=== PATIENT | male | born 1970 | race Caucasian/White ===

== ENCOUNTER → 2020-05-22 15:38 | Outpatient (CLI) | payer OTHER, SELFPAY ==
[2020-05-22] MEDS: COVID-19 VACC #1, MRNA(MOD) 100 MCG/0.5 ML VIAL IM (15:41)
== END ==
PROVIDERS: PCP Internal Medicine; Visit Provider Internal Medicine
DX: Z23 Encounter for immunization (principal)
CPT/HCPCS: 0011A; 91301

== ENCOUNTER → 2020-06-19 15:22 | Outpatient (CLI) | payer OTHER, SELFPAY ==
[2020-06-19] MEDS: COVID-19 VACC #2, MRNA(MOD) 100 MCG/0.5 ML VIAL IM (15:27)
== END ==
PROVIDERS: PCP Internal Medicine; Visit Provider Internal Medicine
DX: Z23 Encounter for immunization (principal)
CPT/HCPCS: 0012A; 91301

== ENCOUNTER 2022-08-07 16:30 | Inpatient (IN) | payer OTHER, MEDICAID, SELFPAY ==
[2022-08-07] VITALS (13 sets, daily range): BP systolic 120–166; BP diastolic 74–101; PULSE 77–98; RESP 16; TEMP 37.1; O2SAT 94–98; BMI 30.3
--- NOTE | 2022-08-07 16:36 | DI.RAD.S_ITS ---
PROCEDURE: XR FOOT RT MIN 3V INDICATIONS: diabetic ulceration of 2nd toe, r/o osteo TECHNIQUE: 3 views of the foot were acquired. COMPARISON: None. FINDINGS: Bones: No acute osseous fracture or dislocation. Flexion of the distal interphalangeal joints is noted that compromises evaluation. No definite osseous destruction is seen on oblique and lateral views. Prominent plantar calcaneal enthesophyte. Soft tissues: Prominent soft tissue edema is seen in the 2nd toe. IMPRESSION: Nonspecific soft tissue edema in the 2nd toe. No definite radiographic signs of osteomyelitis given mildly compromised evaluation due to positioning and overlapping of osseous structures. If there is continued clinical concern, MRI could be performed for further evaluation. Approved by: Nick Anthony M.D. on 08/07/2022 at 17:24
[2022-08-07 17:11] LABS: Add Manual Diff / Slide Review NO; Basophils Absolute Auto 200 /uL (0-100); Eosinophils Absolute Auto 500 /uL (0-450); Eosinophils Percent Auto 5.3 % (2-4); Hemoglobin 14.5 g/dL (13.5-17.5); Lymphocytes Absolute Auto 2100 /uL (1100-4500); Lymphocytes Percent Auto 23.8 % (25-40); Mean Corpuscular HGB Conc 34.6 % (30-36); Mean Corpuscular Hemoglobin 32.3 PG (26-34); Mean Corpuscular Volume 93.1 fL (80-100); Monocytes Absolute Auto 600 /uL (0-900); Monocytes Percent Auto 6.1 % (3-14); Neutrophils Absolute Auto 5600 /uL (1500-7000); Neutrophils Percent Auto 62.8 % (50-75); Platelet Count 323 X10^3/uL (150-400); Red Blood Cell Count 4.51 X10^6/uL (4.5-5.9); Red Cell Distribution Width 13.1 % (11.6-14.8)
[2022-08-07 17:24] LABS: Alanine Aminotransferase 27 IU/L (<50); Albumin Globulin Ratio 1.1 (1.0-2.8); Alkaline Phosphatase 100 U/L (38-126); Aspartate Aminotransferase 29 IU/L (17-59); BUN Creatinine Ratio 15.6 (6-22); Bilirubin Total 0.9 mg/dL (0.2-1.3); Blood Urea Nitrogen 10 mg/dL (9-20); Calcium 9.1 mg/dL (8.4-10.2); Carbon Dioxide 26 mmol/L (22-32); Chloride 99 mmol/L (98-107); Estimated Glomerular Filt Rate > 60 mL/min (>60); Globulin 3.7 g/dL (1.7-4.1); Glucose 107 mg/dL (70-100); HEMOLYSIS 15 (0-50); Potassium 3.8 mmol/L (3.4-5.1); Sodium 136 mmol/L (137-145); Total Protein 7.7 g/dL (6.3-8.2)
--- NOTE | 2022-08-07 21:20 | ED_ITS ---
HPI - Extremity Injury (Lower) General Chief Complaint: Extremity Injury, Lower Stated Complaint: Bad toe Time Seen by Provider: 08/07/22 21:11 History of Present Illness HPI Narrative: Patient is a 51-year-old male history of gout presenting today with right 2nd toe infection. He reports that it is couple of weeks but over the last 24 hours as gotten significantly worse. He denies any fever or chills. He reports that his right leg is a little bit swollen and red as well. He is not a diabetic. He says it started off as a little wound progressively has gotten significantly worse. Related Data Home Medications Medication Instructions Recorded Confirmed [BP RX] ##0 10/06/11 06/03/20 allopurinol 100 mg tablet 100 mg PO QDAY ##0 10/06/11 06/03/20 Allergies Allergy/AdvReac Type Severity Reaction Status Date / Time No Known Allergies Allergy Uncoded 06/03/20 08:54 Review of Systems Review of Systems ROS Unobtainable: All systems reviewed & are unremarkable except as noted in HPI and below Patient History Social History Smoking Status: Former smoker Smoking Status: Former smoker Exam Initial Vital Signs Initial Vital Signs: Vital Signs Temperature 98.7 F 08/07/22 16:33 Pulse Rate 98 H 08/07/22 16:33 Respiratory Rate 16 08/07/22 16:33 Blood Pressure 166/101 H 08/07/22 16:33 Pulse Oximetry 97 08/07/22 16:33 Oxygen Delivery Method Room Air 08/07/22 16:33 GENERAL: Alert pleasant well-appearing 51-year-old and in no acute distress. HEENT: Head atraumatic,EOMI, pupils reactive, face symmetric, moist mucous membranes CARDIOVASCULAR: Regular rate and rhythm without murmurs, rubs or gallops. RESPIRATORY: Breath sounds equal bilaterally, no wheezes rales or rhonchi. ABDOMEN: Soft, nontender. Normoactive bowel sounds all 4 quadrants. No guarding or rebound. EXTREMITIES: Normal range of motion, no clubbing or edema. Neurovascularly intact NEUROLOGICAL: Alert and oriented x4. SKIN: Right lower leg mildly swollen erythematous up to the knee right 2nd toe white macerated non distinguishable toe nonpainful Course Orders Ordered: ED Orders 08/07/22 23:23 CT angio abd aorta runoff Urgent MR foot RT wo con Urgent 08/07/22 23:25 Consult to Orthopedic Surgery Routine Discontinued Medications Ceftriaxone Sodium 2,000 mg/ (Sodium Chloride) 100 mls @ 200 mls/hr IV NOW ONE Stop: 08/07/22 21:21 Last Infusion: 08/07/22 22:04 Dose: 0 mls/hr Documented By: Admin: 08/07/22 21:34 Dose: 200 mls/hr Documented By: NEELA Vital Signs Vital signs: Vital Signs - 8 hr 08/07/22 20:30 08/07/22 20:30 08/07/22 21:00 Pulse Rate 82 Blood Pressure 131/74 128/78 Pulse Oximetry 95 08/07/22 21:00 08/07/22 21:30 08/07/22 21:32 Pulse Rate 79 83 Blood Pressure 138/90 Pulse Oximetry 95 97 08/07/22 21:32 08/07/22 22:00 08/07/22 22:00 Pulse Rate 83 81 Blood Pressure 136/92 H Pulse Oximetry 97 97 08/07/22 22:30 08/07/22 22:30 08/07/22 23:00 Pulse Rate 82 Blood Pressure 139/81 143/77 H Pulse Oximetry 96 08/07/22 23:00 08/07/22 23:30 08/07/22 23:30 Pulse Rate 81 80 Blood Pressure 139/87 Pulse Oximetry 94 94 MDM - Extremity Injury (Lower) Lab Data 08/07/22 16:45 08/07/22 16:45 Labs: Lab Results 08/07/22 08/07/22 08/07/22 Range/Units 00:01 16:45 16:45 WBC 9.0 (4.5-11.0) X10^3/uL RBC 4.51 (4.5-5.9) X10^6/uL Hgb 14.5 (13.5-17.5) g/dL Hct 42.0 (41-53) % MCV 93.1 (80-100) fL MCH 32.3 (26-34) PG MCHC 34.6 (30-36) % RDW 13.1 (11.6-14.8) % Plt Count 323 (150-400) X10^3/uL Neut % (Auto) 62.8 (50-75) % Lymph % (Auto) 23.8 L (25-40) % [place] % (Auto) 6.1 (3-14) % Eos % (Auto) 5.3 H (2-4) % Baso % (Auto) 2.0 (0-2) % Neut # (Auto) 5600 (6430-1308) /uL Lymph # (Auto) 2100 (0979-1118) /uL [place] # (Auto) 600 (0-900) /uL Eos # (Auto) 500 H (0-450) /uL Baso # (Auto) 200 H (0-100) /uL ESR (0-15) MM/HR Sodium 136 L (137-145) mmol/L Potassium 3.8 (3.4-5.1) mmol/L Chloride 99 (98-107) mmol/L Carbon Dioxide 26 (22-32) mmol/L BUN 10 (9-20) mg/dL Creatinine 0.64 L (0.66-1.25) mg/dL Estimated GFR > 60 (>60) mL/min BUN/Creatinine Ratio 15.6 (6-22) Glucose 107 H (70-100) mg/dL Uric Acid 3.5 (3.5-8.5) mg/dL Calcium 9.1 (8.4-10.2) mg/dL Total Bilirubin 0.9 (0.2-1.3) mg/dL AST 29 (17-59) IU/L ALT 27 (<50) IU/L Alkaline Phosphatase 100 (38-126) U/L C-Reactive Protein (<1.0) mg/dL Total Protein 7.7 (6.3-8.2) g/dL Albumin 4.0 (3.5-5.0) g/dL Globulin 3.7 (1.7-4.1) g/dL Albumin/Globulin Ratio 1.1 (1.0-2.8) Procalcitonin (<0.5) ng/mL 08/07/22 08/07/22 08/07/22 Range/Units 16:45 16:45 16:45 WBC (4.5-11.0) X10^3/uL RBC (4.5-5.9) X10^6/uL Hgb (13.5-17.5) g/dL Hct (41-53) % MCV (80-100) fL MCH (26-34) PG MCHC (30-36) % RDW (11.6-14.8) % Plt Count (150-400) X10^3/uL Neut % (Auto) (50-75) % Lymph % (Auto) (25-40) % [place] % (Auto) (3-14) % Eos % (Auto) (2-4) % Baso % (Auto) (0-2) % Neut # (Auto) (5896-1771) /uL Lymph # (Auto) (9672-8078) /uL [place] # (Auto) (0-900) /uL Eos # (Auto) (0-450) /uL Baso # (Auto) (0-100) /uL ESR 52 H (0-15) MM/HR Sodium (137-145) mmol/L Potassium (3.4-5.1) mmol/L Chloride (98-107) mmol/L Carbon Dioxide (22-32) mmol/L BUN (9-20) mg/dL Creatinine (0.66-1.25) mg/dL Estimated GFR (>60) mL/min BUN/Creatinine Ratio (6-22) Glucose (70-100) mg/dL Uric Acid (3.5-8.5) mg/dL Calcium (8.4-10.2) mg/dL Total Bilirubin (0.2-1.3) mg/dL AST (17-59) IU/L ALT (<50) IU/L Alkaline Phosphatase (38-126) U/L C-Reactive Protein 4.9 H (<1.0) mg/dL Total Protein (6.3-8.2) g/dL Albumin (3.5-5.0) g/dL Globulin (1.7-4.1) g/dL Albumin/Globulin Ratio (1.0-2.8) Procalcitonin 0.12 (<0.5) ng/mL Imaging Data Extremity x-ray #1: Radiologist's Impression: PROCEDURE:? XR FOOT RT MIN 3V ? INDICATIONS:? diabetic ulceration of 2nd toe, r/o osteo ? TECHNIQUE:? 3 views of the foot were acquired.? ? COMPARISON:? None. ? FINDINGS:? ? Bones:? No acute osseous fracture or dislocation.? Flexion of the distal interphalangeal joints is noted that compromises evaluation.? No definite osseous destruction is seen on oblique and lateral views.? Prominent plantar calcaneal enthesophyte. ? Soft tissues:? Prominent soft tissue edema is seen in the 2nd toe. ? IMPRESSION:? Nonspecific soft tissue edema in the 2nd toe.? No definite radiographic signs of osteomyelitis given mildly compromised evaluation due to positioning and overlapping of osseous structures.? If there is continued clinical concern, MRI could be performed for further evaluation. ? Approved by: Nick Anthony M.D. on 08/07/2022 at 17:24? [facility] Narrative Medical decision making narrative: Patient is a healthy 51-year-old male who presents with a toe infection. Has gotten significantly worse over the last 1 to days. He certainly has cellulitis up his right leg. There is no air on the x-ray concern or evidence necrotizing fasciitis, possible gangrene. He actually does not show any evidence of sepsis he has no leukocytosis fever tachycardia or hypotension. However his toe is obviously infected need for debridement versus amputation. X-ray does not show any osteomyelitis although he has elevated ESR and CRP. Dr. Jack accepts patient. Discharge Plan Departure Patient Disposition: Admitted As Inpatient Clinical Impression: Infection of toe Admit Date/Time: 08/07/22 23:37 Admit Provider: Chip Jack
[2022-08-07] MEDS: cefTRIAXone 2,000 MG in SODIUM CHLORIDE 0.9% 100 ML 200 MG IV (21:34)
[2022-08-07 21:59] LABS: Procalcitonin 0.12 ng/mL (<0.5)
[2022-08-07 22:16] LABS: C-Reactive Protein Quant 4.9 mg/dL (<1.0)
[2022-08-07 22:20] LABS: Erythrocyte Sedimentation Rate 52 MM/HR (0-15)
--- NOTE | 2022-08-07 23:23 | DI.CT.S_ITS ---
PROCEDURE: CT ANGIO ABD AORTA RUNOFF INDICATIONS: eval right leg for stenosis for poor healing ulcer of foot TECHNIQUE: After the administration of intravenous contrast, 2.5 mm sections acquired from T12 to the feet, with optional delayed image acquisition from the knees to the feet. 3-dimensional maximum intensity projection (MIP) coronal and sagittal reformats, and/or 3-dimensional volume rendering reformatting was then performed. For radiation dose reduction, the following was used: automated exposure control. COMPARISON: [facility], CR, XR FOOT RT MIN 3V, 08/07/2022, 17:03. FINDINGS: Image quality: Limited by venous contamination distally. Extravascular tissues: Lung bases are clear. Heart size is normal. Liver is normal in size and enhancement. Gallbladder wall is not thickened . Biliary system is non dilated. Pancreas enhances normally. Spleen is normal in size and enhancement. No adrenal nodules. Kidneys are normal in size and enhancement, without hydronephrosis. Non opacified bowel loops demonstrate normal wall thickness and enhancement. No free fluid or air. No retroperitoneal or mesenteric adenopathy. No ventral hernias. Bladder wall thickness is normal. Bilateral fat containing inguinal hernias are seen. Bilateral prominent groin lymph nodes can be seen, with the largest on the right measuring 3.4 x 2 cm, as on series 6, image 89. No suspicious bony lesions. No vertebral body compression fractures. There is a focally swollen left 2nd toe. There is partial absence of the distal phalanx of the 2nd toe. Abdominal aorta: Normal. Right lower extremity: The right common iliac artery, internal iliac artery, and external iliac artery are within normal limits. The right common femoral artery and profunda femoris artery are within normal limits. The right superficial femoral artery and popliteal artery are within normal limits. There is believed to be normal triple vessel runoff on the left, although this is obscured by venous contamination. Left lower extremity: The left common iliac artery and internal iliac artery are normal. The left external iliac artery and common femoral artery are within normal limits. The left profunda femoris artery and superficial femoral artery are normal. The left popliteal artery is normal. There is poor flow seen involving the distal left anterior tibial artery. There is flow seen to the distal aspects of the left peroneal artery and left posterior tibial artery. IMPRESSION: No significant vascular abnormality is seen on the right, although the distal arteries are obscured by venous contamination. A focally swollen right 2nd toe is seen, with partial absence of the distal phalanx. Osteomyelitis is strongly suspected. Enlarged groin lymph nodes are seen, right worse than left. 2 vessel runoff can be seen on the left. Additional findings: Bilateral fat containing inguinal hernias Dictated by: Colin Teague M.D. on 08/08/2022 at 0:18 Approved by: Colin Teague M.D. on 08/08/2022 at 0:24
--- NOTE | 2022-08-07 23:23 | DI.MRI.S_ITS ---
PROCEDURE: MR FOOT RT WO CON INDICATIONS: osteomyelitis of 2nd toe? TECHNIQUE: Noncontrast sagittal T1 spin echo and T2 fast spin echo with fat saturation, long-axis T1 spin echo and T2 fast spin echo with fat saturation, short-axis T1 spin echo and T2 fast spin echo with fat saturation through the forefoot. COMPARISON: [facility], CR, XR FOOT RT MIN 3V, 08/07/2022, 17:03. FINDINGS: Image quality: Excellent. Bones and joints: Degenerative changes of the interphalangeal joints. Clawtoe configuration of the 2nd through 5th toes is seen. The distal aspect of the phalanx of the 2nd toe demonstrates hyperintense T2 weighted signal and hypointense T1 weighted signal consistent with osteomyelitis Soft tissues: There is edema and fluid signal around the 2nd toe distal phalanx. IMPRESSION: Osteomyelitis of the distal aspect of the distal phalanx of the 2nd toe of the right foot with surrounding cellulitis. Dictated by: Farzad Mckeon M.D. on 08/08/2022 at 8:51 Approved by: Farzad Mckeon M.D. on 08/08/2022 at 8:57
--- NOTE | 2022-08-07 23:32 | PM.HP.1 ---
History of Present Illness History of Present Illness Date Patient Seen: 08/07/22 Time Patient Seen: 23:00 Chief complaint: Bad toe Narrative: Mr. Pretty is a 51M with PMH gout, HTN, former smoker who presents with ulcerated, swollen toe. He notes he had an ulcer develop on the dorsal portion of his right second toe a few weeks ago. He had no trauma he says. He has no history of diabetes, peripheral artery disease, cardiac disease. He has no fevers/chills. He did soak his toe occasionally. His toe continued to worsen so he presented to the ED. In the ED workup was done, vitals notable for afebrile, heart rate in the 90s, blood pressure 160s/100s, sats 97% on room air. Labs reviewed and notable for WBC 9.0, hgb 14.5, plts 323. Na 136, BUN 10, creatinine 0.64. ESR 52. CRP 4.9. Procal 0.12. Foot xray reviewed by me and notable for edema of the 2nd toe. He was ordered for antibiotics and admitted for further treatment. FORMERLY [facility], [facility]–1983 Social History Smoking Status: Former smoker Meds Home Medications and Allergies Home Medications Medication Instructions Recorded Confirmed Type [BP RX] ##0 10/06/11 06/03/20 History allopurinol 100 mg tablet 100 mg PO QDAY ##0 10/06/11 06/03/20 History Allergies Allergy/AdvReac Type Severity Reaction Status Date / Time No Known Allergies Allergy Uncoded 06/03/20 08:54 Review of Systems Review of Systems Narrative: 14 systems reviewed and negative aside from what is noted in HPI Exam Vital Signs (past 8 hours): - 08/07/22 16:33 08/07/22 19:07 08/07/22 19:09 Temperature 98.7 F Pulse Rate 98 H 89 Respiratory Rate 16 Blood Pressure 166/101 H 143/91 H Pulse Oximetry 97 96 Oxygen Delivery Method Room Air 08/07/22 19:09 08/07/22 19:30 08/07/22 19:30 Temperature Pulse Rate 85 81 Respiratory Rate Blood Pressure 139/90 Pulse Oximetry 98 98 Oxygen Delivery Method 08/07/22 20:00 08/07/22 20:00 08/07/22 20:30 Temperature Pulse Rate 77 Respiratory Rate Blood Pressure 120/77 131/74 Pulse Oximetry 96 Oxygen Delivery Method 08/07/22 20:30 08/07/22 21:00 08/07/22 21:00 Temperature Pulse Rate 82 79 Respiratory Rate Blood Pressure 128/78 Pulse Oximetry 95 95 Oxygen Delivery Method 08/07/22 21:30 08/07/22 21:32 08/07/22 21:32 Temperature Pulse Rate 83 83 Respiratory Rate Blood Pressure 138/90 Pulse Oximetry 97 97 Oxygen Delivery Method 08/07/22 22:00 08/07/22 22:00 08/07/22 22:30 Temperature Pulse Rate 81 Respiratory Rate Blood Pressure 136/92 H 139/81 Pulse Oximetry 97 Oxygen Delivery Method 08/07/22 22:30 08/07/22 23:00 08/07/22 23:00 Temperature Pulse Rate 82 81 Respiratory Rate Blood Pressure 143/77 H Pulse Oximetry 96 94 Oxygen Delivery Method 08/07/22 23:30 08/07/22 23:30 Temperature Pulse Rate 80 Respiratory Rate Blood Pressure 139/87 Pulse Oximetry 94 Oxygen Delivery Method Oxygen Delivery Method Room Air Narrative Exam Narrative: GEN: no acute distress CV: regular rate and rhythm PULM: clear bilaterally, no wheezes, rhonchi rales ABD: soft, nontender, nondistended, normal bowel sounds EXT: warm and well perfused, pedal pulses palpable and normal, right 2nd toe with whitish swollen macerated skin surrounding entire toe with foul odor and proximally to toe skin erythematous NEURO: awake, alert, oriented, no focal deficits Objective Labs 08/07/22 16:45 08/07/22 16:45 Labs: Laboratory Results - last 24 hr 08/07/22 08/07/22 08/07/22 16:45 16:45 16:45 WBC 9.0 RBC 4.51 Hgb 14.5 Hct 42.0 MCV 93.1 MCH 32.3 MCHC 34.6 RDW 13.1 Plt Count 323 Neut % (Auto) 62.8 Lymph % (Auto) 23.8 L [place] % (Auto) 6.1 Eos % (Auto) 5.3 H Baso % (Auto) 2.0 Neut # (Auto) 5600 Lymph # (Auto) 2100 [place] # (Auto) 600 Eos # (Auto) 500 H Baso # (Auto) 200 H ESR 52 H Sodium 136 L Potassium 3.8 Chloride 99 Carbon Dioxide 26 BUN 10 Creatinine 0.64 L Estimated GFR > 60 BUN/Creatinine Ratio 15.6 Glucose 107 H Calcium 9.1 Total Bilirubin 0.9 AST 29 ALT 27 Alkaline Phosphatase 100 C-Reactive Protein Total Protein 7.7 Albumin 4.0 Globulin 3.7 Albumin/Globulin Ratio 1.1 Procalcitonin 08/07/22 08/07/22 16:45 16:45 WBC RBC Hgb Hct MCV MCH MCHC RDW Plt Count Neut % (Auto) Lymph % (Auto) [place] % (Auto) Eos % (Auto) Baso % (Auto) Neut # (Auto) Lymph # (Auto) [place] # (Auto) Eos # (Auto) Baso # (Auto) ESR Sodium Potassium Chloride Carbon Dioxide BUN Creatinine Estimated GFR BUN/Creatinine Ratio Glucose Calcium Total Bilirubin AST ALT Alkaline Phosphatase C-Reactive Protein 4.9 H Total Protein Albumin Globulin Albumin/Globulin Ratio Procalcitonin 0.12 Assessment & Plan Assessment & Plan narrative: 1. Infected right 2nd toe -concern for necrotic infection -patient denies history of DM, will check a1c -given nonhealing nature, and history of smoking, will order for CT angio to evaluate for any poor circulation that explains poor healing -ESR and CRP mildly elevated -MRI ordered to evaluate for osteomyelitis -ordered for vancomycin, ceftriaxone for now, narrow based on cultures -blood cultures pending -consult ortho for question of debridement vs amputation 2. Hypertension -continue arb 3. Gout -continue allopurinol -check uric acid I have discussed plan and obtained history from the patient. I have discussed plan of care with ED physician and bedside nurse. I have reviewed labs, imaging. CODE: Full Proxy: family Eri [facility] - Meds 'Current medications' to include all prescriptions, [id number] products, herbals, cannabis/cannabidiol products, and vitamin/mineral/dietary (nutritional) supplements. I have utilized all available resources to obtain, update, or review the patient?s current medications. [If Yes, STOP here]: Yes
[2022-08-08] VITALS (16 sets, daily range): BP systolic 138–160; BP diastolic 84–98; PULSE 76–95; RESP 16–20; TEMP 36.3–36.7; O2SAT 94–97; BMI 30.3
[2022-08-08 00:45] LABS: Uric Acid 3.5 mg/dL (3.5-8.5)
--- NOTE | 2022-08-08 08:09 | PM.PN.1 ---
Subjective Subjective Interval history: Patient wondering about surgery of his toe. Ortho will be by to evaluate later. He would prefer to avoid 6 weeks of IV antibiotics if he can. Exam Vital Signs (past 8 hours): - 08/08/22 00:30 08/08/22 00:59 08/08/22 00:59 Pulse Rate 87 80 Respiratory Rate Blood Pressure 149/93 H Pulse Oximetry 96 96 Oxygen Delivery Method 08/08/22 01:00 08/08/22 01:00 08/08/22 01:30 Pulse Rate 78 Respiratory Rate Blood Pressure 155/88 H 148/84 H Pulse Oximetry 95 Oxygen Delivery Method 08/08/22 01:30 08/08/22 02:00 08/08/22 02:00 Pulse Rate 76 81 Respiratory Rate Blood Pressure 160/98 H Pulse Oximetry 95 94 Oxygen Delivery Method 08/08/22 05:58 Pulse Rate 78 Respiratory Rate 20 Blood Pressure 150/88 H Pulse Oximetry 95 Oxygen Delivery Method Room Air Oxygen Delivery Method Room Air Narrative Exam Narrative: GEN: no acute distress CV: regular rate and rhythm PULM: clear bilaterally, no wheezes, rhonchi rales ABD: soft, nontender, nondistended, normal bowel sounds EXT: warm and well perfused, pedal pulses palpable and normal, right 2nd toe with whitish swollen macerated skin surrounding entire toe with foul odor, with small ulcer at distal tip draining purulent drainage NEURO: awake, alert, oriented, no focal deficits Objective Labs 08/08/22 11:20 08/08/22 11:20 Labs: Laboratory Results - last 24 hr 08/07/22 08/07/22 08/07/22 00:01 16:45 16:45 WBC 9.0 RBC 4.51 Hgb 14.5 Hct 42.0 MCV 93.1 MCH 32.3 MCHC 34.6 RDW 13.1 Plt Count 323 Neut % (Auto) 62.8 Lymph % (Auto) 23.8 L [place] % (Auto) 6.1 Eos % (Auto) 5.3 H Baso % (Auto) 2.0 Neut # (Auto) 5600 Lymph # (Auto) 2100 [place] # (Auto) 600 Eos # (Auto) 500 H Baso # (Auto) 200 H ESR Sodium 136 L Potassium 3.8 Chloride 99 Carbon Dioxide 26 BUN 10 Creatinine 0.64 L Estimated GFR > 60 BUN/Creatinine Ratio 15.6 Glucose 107 H Uric Acid 3.5 Calcium 9.1 Total Bilirubin 0.9 AST 29 ALT 27 Alkaline Phosphatase 100 C-Reactive Protein Total Protein 7.7 Albumin 4.0 Globulin 3.7 Albumin/Globulin Ratio 1.1 Procalcitonin 08/07/22 08/07/22 08/07/22 16:45 16:45 16:45 WBC RBC Hgb Hct MCV MCH MCHC RDW Plt Count Neut % (Auto) Lymph % (Auto) [place] % (Auto) Eos % (Auto) Baso % (Auto) Neut # (Auto) Lymph # (Auto) [place] # (Auto) Eos # (Auto) Baso # (Auto) ESR 52 H Sodium Potassium Chloride Carbon Dioxide BUN Creatinine Estimated GFR BUN/Creatinine Ratio Glucose Uric Acid Calcium Total Bilirubin AST ALT Alkaline Phosphatase C-Reactive Protein 4.9 H Total Protein Albumin Globulin Albumin/Globulin Ratio Procalcitonin 0.12 [facility] Social History household members: none Smoking Status: Current every day smoker Assessment & Plan Assessment & Plan narrative: 1. Left 2nd toe cellulitis and osteomyelitis of distal phalanx -patient denies history of DM, will check a1c -CT angio with evidence of vascular compromise -ESR and CRP mildly elevated -MRI shows 2nd distal phalanx on left with osteomyelitis -ordered for vancomycin, ceftriaxone for now, narrow based on cultures -blood cultures pending -consult ortho for question of debridement vs amputation -if no surgical debridement will need 6 weeks of IV abx, if all infected tissue removed then can treat with 2 weeks of IV abx or po linezolid 2. Hypertension -continue arb 3. Gout -continue allopurinol -uric acid 3.5 4. Depression -continue sertraline CODE: Full Proxy: Toney Pretty, family I have discussed with the hospital multidisciplinary care team including social work rounds. Dispo: Pending possible surgery and antibiotic course for osteomyelitis
[2022-08-08] MEDS: ENOXAPARIN 40 MG/0.4 ML SYRINGE SUBCUT (08:48)
[2022-08-08] MEDS: VANCOMYCIN 2,000 MG/400 ML PIGGYBACK 200 MG IV (08:48)
[2022-08-08] MEDS: SERTRALINE 50 MG TABLET 100 MG PO (09:56)
[2022-08-08] MEDS: allopurinoL 100 MG TABLET 300 MG PO (09:56)
[2022-08-08] MEDS: LOSARTAN 50 MG TABLET 100 MG PO (09:56)
[2022-08-08 11:26] LABS: Add Manual Diff / Slide Review NO; Basophils Absolute Auto 100 /uL (0-100); Eosinophils Absolute Auto 500 /uL (0-450); Eosinophils Percent Auto 7.6 % (2-4); Hemoglobin 14.3 g/dL (13.5-17.5); Lymphocytes Absolute Auto 1500 /uL (1100-4500); Lymphocytes Percent Auto 21.7 % (25-40); Mean Corpuscular HGB Conc 34.8 % (30-36); Mean Corpuscular Hemoglobin 32.6 PG (26-34); Mean Corpuscular Volume 93.6 fL (80-100); Monocytes Absolute Auto 400 /uL (0-900); Monocytes Percent Auto 5.7 % (3-14); Neutrophils Absolute Auto 4600 /uL (1500-7000); Platelet Count 289 X10^3/uL (150-400); Red Blood Cell Count 4.38 X10^6/uL (4.5-5.9); White Blood Cell Count 7.1 X10^3/uL (4.5-11.0)
[2022-08-08 11:36] LABS: BUN Creatinine Ratio 15.3 (6-22); Blood Urea Nitrogen 9 mg/dL (9-20); Calcium 8.8 mg/dL (8.4-10.2); Carbon Dioxide 27 mmol/L (22-32); Chloride 99 mmol/L (98-107); Estimated Glomerular Filt Rate > 60 mL/min (>60); Glucose 113 mg/dL (70-100); HEMOLYSIS < 15 (0-50); Potassium 4.3 mmol/L (3.4-5.1); Sodium 132 mmol/L (137-145)
--- NOTE | 2022-08-08 17:33 | P.CONS_ITS ---
History of Present Illness Consult details Date Patient Seen: 08/08/22 Time Patient Seen: 16:00 Chief complaint: Bad toe Reason for consult: right foot second toe infection Requesting provider: Jayesh Powell Narrative: Ms. Pretty is a 51 yo M with 3 weeks history of worsening right second toe infection. His toe has purulent drainage from the wound on the tip of the toe. There is no visible capillary refill on the tip of the toe indicating possible necrosis of at least part of the toe. Patient has MRI of the right foot showing at least distal phalanx with osteomyelitis. I discussed my findings with the patient. I recommended surgical debridement and at least partial amputation of the right second toe. Risks of the surgery was discussed. He is scheduled urgently for tomorrow AM. Patient understands and agrees with the plan. Meds Home Medications and Allergies Home Medications Medication Instructions Recorded Confirmed Type allopurinol 300 mg tablet 300 mg PO DAILY 08/08/22 08/08/22 History losartan 100 mg tablet 100 mg PO DAILY 08/08/22 08/08/22 History sertraline 100 mg tablet 100 mg PO DAILY 08/08/22 08/08/22 History Allergies Allergy/AdvReac Type Severity Reaction Status Date / Time No Known Drug Allergies Allergy Verified 08/08/22 08:15 Exam Vital Signs (past 8 hours): - 08/08/22 09:56 08/08/22 10:00 08/08/22 11:58 Temperature 98.0 F Pulse Rate 83 85 Respiratory Rate 18 Blood Pressure 157/98 H 145/98 H Pulse Oximetry 96 97 Oxygen Delivery Method Room Air Objective Labs 08/08/22 11:20 08/08/22 11:20 Labs: Laboratory Results - last 24 hr 08/07/22 08/07/22 08/07/22 00:01 16:45 16:45 WBC RBC Hgb Hct MCV MCH MCHC RDW Plt Count Neut % (Auto) Lymph % (Auto) [place] % (Auto) Eos % (Auto) Baso % (Auto) Neut # (Auto) Lymph # (Auto) [place] # (Auto) Eos # (Auto) Baso # (Auto) ESR 52 H Sodium Potassium Chloride Carbon Dioxide BUN Creatinine Estimated GFR BUN/Creatinine Ratio Glucose Uric Acid 3.5 Calcium C-Reactive Protein 4.9 H Procalcitonin 08/07/22 08/08/22 08/08/22 16:45 11:20 11:20 WBC 7.1 RBC 4.38 L Hgb 14.3 Hct 41.0 MCV 93.6 MCH 32.6 MCHC 34.8 RDW 13.0 Plt Count 289 Neut % (Auto) 64.0 Lymph % (Auto) 21.7 L [place] % (Auto) 5.7 Eos % (Auto) 7.6 H Baso % (Auto) 1.0 Neut # (Auto) 4600 Lymph # (Auto) 1500 [place] # (Auto) 400 Eos # (Auto) 500 H Baso # (Auto) 100 ESR Sodium 132 L Potassium 4.3 Chloride 99 Carbon Dioxide 27 BUN 9 Creatinine 0.59 L Estimated GFR > 60 BUN/Creatinine Ratio 15.3 Glucose 113 H Uric Acid Calcium 8.8 C-Reactive Protein Procalcitonin 0.12 PFSH Social History household members: none Tobacco & Substance Use Smoking Status: Current every day smoker
[2022-08-08] MEDS: VANCOMYCIN 1,250 MG/250 ML PIGGYBACK 250 MG IV (18:01)
[2022-08-08] MEDS: cefTRIAXone 2,000 MG in SODIUM CHLORIDE 0.9% 100 ML 200 MG IV (21:00)
[2022-08-08] MEDS: ACETAMINOPHEN 325 MG TABLET 650 MG PO (22:14)
[2022-08-09] VITALS (14 sets, daily range): BP systolic 110–151; BP diastolic 61–99; PULSE 67–107; RESP 11–20; TEMP 35.2–36.7; O2SAT 93–97; BMI 30.3
[2022-08-09] MEDS: VANCOMYCIN 1,250 MG/250 ML PIGGYBACK 250 MG IV ×3 (04:15→20:14)
[2022-08-09 07:08] LABS: Add Manual Diff / Slide Review NO; Basophils Absolute Auto 100 /uL (0-100); Basophils Percent Auto 1.5 % (0-2); Eosinophils Absolute Auto 500 /uL (0-450); Eosinophils Percent Auto 7.9 % (2-4); Hematocrit 41.1 % (41-53); Hemoglobin 14.4 g/dL (13.5-17.5); Lymphocytes Absolute Auto 1800 /uL (1100-4500); Mean Corpuscular Hemoglobin 32.8 PG (26-34); Mean Corpuscular Volume 93.7 fL (80-100); Monocytes Absolute Auto 300 /uL (0-900); Monocytes Percent Auto 5.6 % (3-14); Neutrophils Absolute Auto 3500 /uL (1500-7000); Platelet Count 271 X10^3/uL (150-400); Red Blood Cell Count 4.38 X10^6/uL (4.5-5.9); Red Cell Distribution Width 13.1 % (11.6-14.8); White Blood Cell Count 6.2 X10^3/uL (4.5-11.0)
[2022-08-09 07:17] LABS: BUN Creatinine Ratio 16.2 (6-22); Blood Urea Nitrogen 11 mg/dL (9-20); Calcium 8.9 mg/dL (8.4-10.2); Carbon Dioxide 29 mmol/L (22-32); Chloride 99 mmol/L (98-107); Estimated Glomerular Filt Rate > 60 mL/min (>60); Glucose 106 mg/dL (70-100); HEMOLYSIS < 15 (0-50); Potassium 4.2 mmol/L (3.4-5.1); Sodium 136 mmol/L (137-145)
[2022-08-09] MEDS: LACTATED RINGERS 1,000 ML 42 ML IV (08:42)
--- NOTE | 2022-08-09 09:10 | SUR.OPER ---
Supine on padded OR bed, head on pillow, arms secured on padded arm boards at <90 degrees abduction, legs uncrossed, safety belt at abdomen, tape over blanket over lower left leg.
[2022-08-09] MEDS: BUPIVACAINE 0.25% (PF) VIAL 30 ML INJ (09:38)
--- NOTE | 2022-08-09 09:58 | P.OP_ITS ---
Operative Date/Time/Diagnoses Date of procedure: 08/09/22 Time of procedure: 08:45 Pre-op diagnosis: 1. Right second toe osteomyelitis 2. Right second toe deep abscess Post-op diagnosis: same Procedure & Clinicians Procedure: 1. Right second toe trans-middle phalanx amputation 2. Irrigtation and debridement of skin, muscle and bone of right second toe 3. Primary wound closure Same procedure as scheduled: Yes Indications: Mr. Randle is here for 3 weeks of progressively worsening right second toe infection. Over the last week, he has active purulent drainage from an open wound from the tip of the toe. He was admitted through ER and orthopedic service was consulted. MRI showed osteomyelitis in at least the entire the distal phalanx. Patient was scheduled for urgent I&D and partial amputation of his right second toe. Surgeon: Lorna Clancy Yes if Unassisted: Yes Anesthesia Type: General Operative Notes Closure Type: primary Estimated Blood Loss (mL): 2 Blood products transfused: none Tourniquet time (min): 47 Procedure in detail: After risks and benefits of the surgery was discussed, informed consent was obtained and was placed into the chart. Surgical site was marked. Patient was taken to the OR. General anesthesia was administered. Time out was performed. Patient was placed into supine position. Tourniquet was placed on the right upper thigh. Patient's right leg was prepped from tips of his toes up to the tourniquet. Patient's right leg was prepped and draped in the sterile fashion. Patient's right leg was elevated for 1 minute and tourniquet was inflated to 250 mm mercury. Fifteen blade scalpel was used to debride the skin. Patient's right 2nd toe was found to be entirely encapsulated in hard callus circumferentially. Combination of small scissors and Leksell rongeur was used to remove the callus from the toe. Patient was found to have multiple small open wounds with draining abscess from distal portion of the right 2nd toe. The incision was extended to the base of the middle phalanx. The wound was examined. The distal phalanx had significant bone loss due to the osteomyelitis. There is approximately 1 cc of purulent material inside the wound mostly in the location of the distal phalanx. Wound culture was taken at this time. There was partial involvement of the middle phalanx in the distal portion with bony erosion due to osteomyelitis. Small bony rongeur was used to remove the distal phalanx and part of the middle phalanx until healthy-appearing bone and soft tissue was visualized. Tourniquet was temporarily released to examine for viable bleeding tissue. On healthy appearing soft tissue including the skin subcutaneous tissue and muscle was removed until healthy tissue was identified. The wound was copiously irrigated with sterile normal saline at this time. Skin of the amount of plantar skin was preserved in order to close the wound with more plantar skin for its more abundant vascularity. The skin edges was trimmed to allow a cosmetic closure. Combination of 2-0 and 3-0 nylon suture was used to close the wound in interru pted fashion. The wound was closed without any difficulty. The wound was then covered with Xeroform sterile 4 x 4 plane and Bright bandage. Tourniquet was deflated at this time. Patient was woken up from anesthesia and transferred to recovery room in stable condition. Patient will be placed on IV antibiotics. We will follow on patient's wound culture and adjust the antibiotics accordingly. Patient can weight bear as tolerated in a postop shoe to his right lower extremity. Complications: none Post-operative Condition: stable Disposition: PACU Plan for aftercare: Admit to inpatient hospital
[2022-08-09] MEDS: ONDANSETRON 4 MG/2 ML INJ IV (10:12)
[2022-08-09] MEDS: OXYCODONE IR 5 MG TABLET PO (10:12)
[2022-08-09 10:37] LABS: Vancomycin Trough 16.4 ug/mL (10-20)
[2022-08-09] MEDS: allopurinoL 100 MG TABLET 300 MG PO (10:51)
[2022-08-09] MEDS: LOSARTAN 50 MG TABLET 100 MG PO (10:51)
[2022-08-09] MEDS: SERTRALINE 50 MG TABLET 100 MG PO (10:52)
--- NOTE | 2022-08-09 10:56 | PT-IP ANOTE ---
PT order received. Pt underwent toe surgery this date. Will initiate eval next treatment date.
[2022-08-09] MEDS: LACTATED RINGERS 1,000 ML 125 ML IV (11:39)
--- NOTE | 2022-08-09 12:21 | CM.DANOTE ---
Initial Discharge Assessment Note: Case reviewed, met with patient. Introduced self and role. Payer: Jerome VELA and self pay PCP: CANDY at [facility] in [place] 51 year old male admitted for ulcerated Right 2nd toe. MRI showed partial osteo. Partial amputation done today to R 2nd toe. Dressing intact and surgical shoe on. Patient can be WBAT. 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 Discussed options of home infusion versus outpatient infusion. He is still under effect of anaesthetic and is undecided at this time. Will need follow up discussion. Plan: Patient will need to make a decision between Outpatient infusion center her at [facility] versus home with home infusion, [facility]. Begin referral process in AM J Discharge Planning/Care Management CM Discharge Assessment Start: 08/09/22 12:17 Freq: Status: Active Protocol: Document 08/09/22 12:19 (Rec: 08/09/22 12:21 [id number]) Discharge Planning Assessment Assigned Clarifier Operator Helper Cherise Alcantar RN/DCP Advance Directives? No History Provided By Patient Prior Living Arrangements House Household Members none Type of transporation used prior to Drives own vehicle admit Independent with ADL's Yes Is patient alert and oriented? Yes Caregiver for Another No Barriers to Discharge No Discharge Plan Home Referrals Initiated Other Additional Comment Tomorrow, once patient decides , referral to either home infusion or outpatient infusion. Review Status In Process Next Review Type Continued Stay Review
--- NOTE | 2022-08-09 14:24 | PM.PN.1 ---
Subjective Subjective Interval history: Patient please do had surgery. Feeling better. Eager to know the next steps of care especially after wound culture intraoperatively taken results are known. Exam Vital Signs (past 8 hours): - 08/09/22 08:43 08/09/22 09:58 08/09/22 10:02 Temperature 97.3 F L 98.1 F Pulse Rate 82 85 79 Respiratory Rate 16 14 11 L Blood Pressure 145/99 H 128/78 133/87 Pulse Oximetry 97 93 94 Oxygen Delivery Method Room Air Room Air Room Air Oxygen Flow Rate 08/09/22 10:08 08/09/22 10:16 08/09/22 10:30 Temperature 95.4 F L Pulse Rate 78 79 71 Respiratory Rate 16 20 14 Blood Pressure 151/61 H 132/88 114/68 Pulse Oximetry 93 94 93 Oxygen Delivery Method Room Air Room Air Oxygen Flow Rate 0 08/09/22 10:51 08/09/22 11:00 08/09/22 12:00 Temperature 95.8 F L 95.7 F L Pulse Rate 76 72 86 Respiratory Rate 16 17 Blood Pressure 117/68 120/71 118/86 Pulse Oximetry 94 93 Oxygen Delivery Method Oxygen Flow Rate 0 0 Oxygen Delivery Method Room Air Oxygen Flow Rate 0 Narrative Exam Narrative: GEN: no acute distress CV: regular rate and rhythm PULM: clear bilaterally, no wheezes, rhonchi rales ABD: soft, nontender, nondistended, normal bowel sounds EXT: warm and well perfused, pedal pulses palpable and normal, right foot dressed with postop dressing NEURO: awake, alert, oriented, no focal deficits Objective Labs 08/09/22 06:15 08/09/22 06:15 Labs: Laboratory Results - last 24 hr 08/09/22 08/09/22 08/09/22 06:15 06:15 10:05 WBC 6.2 RBC 4.38 L Hgb 14.4 Hct 41.1 MCV 93.7 MCH 32.8 MCHC 35.0 RDW 13.1 Plt Count 271 Neut % (Auto) 56.0 Lymph % (Auto) 29.0 [place] % (Auto) 5.6 Eos % (Auto) 7.9 H Baso % (Auto) 1.5 Neut # (Auto) 3500 Lymph # (Auto) 1800 [place] # (Auto) 300 Eos # (Auto) 500 H Baso # (Auto) 100 Sodium 136 L Potassium 4.2 Chloride 99 Carbon Dioxide 29 BUN 11 Creatinine 0.68 Estimated GFR > 60 BUN/Creatinine Ratio 16.2 Glucose 106 H Calcium 8.9 Vancomycin Trough 16.4 PFSH Social History household members: none Smoking Status: Current every day smoker Assessment & Plan Assessment & Plan narrative: . Left 2nd toe cellulitis and osteomyelitis with surgical amputation today. Patient currently postoperative. -patient denies history of DM, will check a1c -CT angio with evidence of vascular compromise -ESR and CRP mildly elevated on presentation -MRI shows 2nd distal phalanx on left with osteomyelitis on presentation -ordered for vancomycin, ceftriaxone for now, narrow based on cultures -blood cultures have proven to be negative -consulted ortho for amputation -awaiting intraoperative cultures to determine length of antibiotics and whether IV or p.o. 2. Hypertension -continue arb 3. Gout -continue allopurinol -uric acid 3.5 4. Depression -continue sertraline CODE: Full Proxy: Toney Pretty, family Follow clinically and labs. Dispo: surgery completed and antibiotic course for osteomyelitis needs to be determined
[2022-08-09] MEDS: cefTRIAXone 2,000 MG in SODIUM CHLORIDE 0.9% 100 ML 200 MG IV (21:33)
[2022-08-09] MEDS: MELATONIN 3 MG TABLET 6 MG PO (21:33)
[2022-08-09] MEDS: ACETAMINOPHEN 325 MG TABLET 650 MG PO (21:33)
[2022-08-10 01:13] LABS: x Labcorp Estim. Avg Glu (eAG) 108 mg/dL (.); x Labcorp Hemoglobin A1c 5.4 % (4.8-5.6)
[2022-08-10] MEDS: LACTATED RINGERS 1,000 ML 125 ML IV (01:37)
[2022-08-10] MEDS: VANCOMYCIN 1,250 MG/250 ML PIGGYBACK 250 MG IV ×3 (03:26→20:24)
[2022-08-10 04:45] VITALS: BP 116/77; PULSE 71; RESP 18; TEMP 36.2; O2SAT 96
[2022-08-10 06:14] LABS: Add Manual Diff / Slide Review NO; Basophils Absolute Auto 100 /uL (0-100); Basophils Percent Auto 0.7 % (0-2); Eosinophils Absolute Auto 200 /uL (0-450); Eosinophils Percent Auto 1.6 % (2-4); Hematocrit 39.8 % (41-53); Hemoglobin 13.7 g/dL (13.5-17.5); Lymphocytes Absolute Auto 1900 /uL (1100-4500); Lymphocytes Percent Auto 16.4 % (25-40); Mean Corpuscular HGB Conc 34.5 % (30-36); Mean Corpuscular Hemoglobin 32.4 PG (26-34); Monocytes Absolute Auto 600 /uL (0-900); Monocytes Percent Auto 4.9 % (3-14); Neutrophils Absolute Auto 8900 /uL (1500-7000); Neutrophils Percent Auto 76.4 % (50-75); Platelet Count 282 X10^3/uL (150-400); Red Blood Cell Count 4.23 X10^6/uL (4.5-5.9); Red Cell Distribution Width 13.2 % (11.6-14.8); White Blood Cell Count 11.6 X10^3/uL (4.5-11.0)
[2022-08-10 06:39] LABS: Blood Urea Nitrogen 14 mg/dL (9-20); Carbon Dioxide 24 mmol/L (22-32); Chloride 103 mmol/L (98-107); Estimated Glomerular Filt Rate > 60 mL/min (>60); Glucose 124 mg/dL (70-100); HEMOLYSIS < 15 (0-50); Potassium 4.5 mmol/L (3.4-5.1); Sodium 135 mmol/L (137-145)
[2022-08-10 06:43] LABS: C-Reactive Protein Quant 1.5 mg/dL (<1.0)
[2022-08-10] MEDS: SERTRALINE 50 MG TABLET 100 MG PO (08:10)
[2022-08-10 08:11] VITALS: BP 118/76; PULSE 69
[2022-08-10] MEDS: LOSARTAN 50 MG TABLET 100 MG PO (08:11)
[2022-08-10] MEDS: allopurinoL 100 MG TABLET 300 MG PO (08:11)
[2022-08-10 08:34] VITALS: BP 118/76; PULSE 68; RESP 18; TEMP 35.8; O2SAT 96
--- NOTE | 2022-08-10 09:23 | PM.PN.1 ---
Subjective Subjective Interval history: Slightly less pain today. Swelling has decreased. Patient is pleased with his progress. Eager to know the results of the culture from the wound intraoperatively. This is still pending. Exam Vital Signs (past 8 hours): - 08/10/22 04:45 08/10/22 08:11 08/10/22 08:34 Temperature 97.1 F L 96.4 F L Pulse Rate 71 69 68 Respiratory Rate 18 18 Blood Pressure 116/77 118/76 118/76 Pulse Oximetry 96 96 Oxygen Flow Rate 0 0 Oxygen Delivery Method Room Air Oxygen Flow Rate 0 Narrative Exam Narrative: GEN: no acute distress CV: regular rate and rhythm PULM: clear bilaterally, no wheezes, rhonchi rales ABD: soft, nontender, nondistended, normal bowel sounds EXT: warm and well perfused, pedal pulses palpable and normal, right foot dressed with postop dressing NEURO: awake, alert, oriented, no focal deficits Objective Labs 08/10/22 05:45 08/10/22 05:45 Labs: Laboratory Results - last 24 hr 08/07/22 08/09/22 08/10/22 00:01 10:05 05:45 WBC 11.6 H D RBC 4.23 L Hgb 13.7 Hct 39.8 L MCV 94.0 MCH 32.4 MCHC 34.5 RDW 13.2 Plt Count 282 Neut % (Auto) 76.4 H D Lymph % (Auto) 16.4 L [place] % (Auto) 4.9 Eos % (Auto) 1.6 L Baso % (Auto) 0.7 Neut # (Auto) 8900 H Lymph # (Auto) 1900 [place] # (Auto) 600 Eos # (Auto) 200 Baso # (Auto) 100 Sodium Potassium Chloride Carbon Dioxide BUN Creatinine Estimated GFR BUN/Creatinine Ratio Glucose Hgb A1c (Ref Lab) 5.4 Estim Average Glucose 108 Calcium C-Reactive Protein Vancomycin Trough 16.4 08/10/22 08/10/22 05:45 05:45 WBC RBC Hgb Hct MCV MCH MCHC RDW Plt Count Neut % (Auto) Lymph % (Auto) [place] % (Auto) Eos % (Auto) Baso % (Auto) Neut # (Auto) Lymph # (Auto) [place] # (Auto) Eos # (Auto) Baso # (Auto) Sodium 135 L Potassium 4.5 Chloride 103 Carbon Dioxide 24 BUN 14 Creatinine 0.61 L Estimated GFR > 60 BUN/Creatinine Ratio 23.0 H Glucose 124 H Hgb A1c (Ref Lab) Estim Average Glucose Calcium 9.0 C-Reactive Protein 1.5 H Vancomycin Trough [facility] Social History household members: none Smoking Status: Current every day smoker Assessment & Plan Assessment & Plan narrative: . Left 2nd toe cellulitis and osteomyelitis with surgical amputation yesterday.? Patient currently postoperative. -patient denies history of DM, will check a1c. Hemoglobin A1c is 5.4 which is normal. -CT angio with evidence of vascular compromise -ESR and CRP mildly elevated on presentation, C-reactive protein has decreased to 1.5 today -MRI showed 2nd distal phalanx on left with osteomyelitis on presentation -ordered for vancomycin, ceftriaxone for now, narrow based on cultures, intraoperative culture still pending -blood cultures have proven to be negative -consulted ortho for amputation, completed yesterday -awaiting intraoperative cultures to determine length of antibiotics and whether IV or p.o. 2. Hypertension -continue arb, stable 3. Gout -continue allopurinol -uric acid 3.5 4. Depression -continue sertraline CODE: Full Proxy: Toney Pretty, family Follow clinically and labs. Dispo: surgery completed and antibiotic course for osteomyelitis needs to be determined once culture intraoperatively are known
--- NOTE | 2022-08-10 12:00 | CM.DPC ---
DCP continued: CM spoke with Dr. Wolfe today who stated she is waiting for culture results to determine if patient will need IV ABX or Oral ABX. CM called [facility] who stated they are working on this case and just need to know what IV ABX will be needed. CM team will follow up with this information if patient needs IV ABX. DC plan: home with either PO ABX or [facility] to manage IV ABX infusions. if patient needs IV Patient will need PICC line placed once that is determined. CM team will continue to follow to help with DC planning needs. Wendy Garcia RNglobal product manager
--- NOTE | 2022-08-10 12:30 | PT.IIE ---
Current Diagnoses Local infection of the skin and subcutaneous tissue, unspecified (08/07/22) Surgery Performed Operation Date: 08/09/22 08:00 Actual Procedures p Incision and Drainage Wound Right Second Toe, Partial Amputation - Lorna Lawrence MD Physical Therapy Inpatient Evaluation/Re-Eval M1 PT/OT-IP Prior Functional Status Start: 08/10/22 07:54 Freq: NEEDED Status: Active Protocol: Document 08/10/22 12:30 (Rec: 08/10/22 13:27 [id number]) Medical Review Prior Functional Status Medical History Reviewed Yes Communication WNL Mobility and Gait Independent; admits to some falls in the last year Activities of Daily Living and IADL's 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 M2 PT-IP Current Condition Start: 08/10/22 07:54 Freq: NEEDED Status: Active Protocol: Document 08/10/22 12:30 (Rec: 08/10/22 13:27 [id number]) Physical Therapy Current Condition Current Condition Evaluation Date 08/10/22 M3 PT-IP Subjective Start: 08/10/22 07:54 Freq: NEEDED Status: Active Protocol: Document 08/10/22 12:30 (Rec: 08/10/22 13:27 [id number]) Subjective Physical Therapy Visit Type Type Initial Evaluation Visit Start Time 12:09 Visit Stop Time 12:30 Total Visit Minutes 21 Physical Therapy Visit Comments Patient Comments Pt states that they feel pretty good with movement. Therapy Pain Assessment Pain When Pain Assessed During Mobility Pain Present Pain Present Pain Reported Location Right Toe Intensity 2 Scale Used Numeric (0 - 10) M4 PT-IP Mobility and Gait Start: 08/10/22 07:54 Freq: NEEDED Status: Active Protocol: Document 08/10/22 12:30 (Rec: 08/10/22 13:27 [id number]) PT-Bed Mobility Assessment Rolling Level of Assist Independent Supine to Sit Supine to Sit Independent Sit to Supine Sit to Supine Independent Scooting Scooting to Edge of Bed Independent Scooting Up and Down in Bed Independent PT-Transfer Assessment Sit to and From Stand Sit to and from Stand Independent Equipment Transfer Assistive Device Gait Belt Orthotic/Prosthetic Devices or Brace: Yes Transfer Ability Level of Assist Independent Comments Mobility Comments Pt was up and moving prior to PT encounter. Was in post op shoe. Gait Assessment Gait Gait Assistance Required: Independent Distance (Feet) 100 Able to Maintain Weight Bearing Status Yes During Gait Assistive Devices Assistive Device Gait Belt Orthotic/Prosthetic Devices or Brace: Yes Gait Deviations General Gait Pattern Within Normal Limits Factors Limiting Gait Function Factors Limiting Gait Function Pain Comments Gait Comments When pt was cued to stand up straight, pt noted discomfort in R big toe. M5 PT-IP Objective Assessments Start: 08/10/22 07:54 Freq: NEEDED Status: Active Protocol: Document 08/10/22 12:30 (Rec: 08/10/22 13:27 [id number]) Orientation Orientation/Cognition Level of Alertness Alert Comments Pt was alert and oriented x4 Gross Range of Motion Upper Extremity ROM Assessment Within Functional Limits Lower Extremity ROM Assessment Within Functional Limits Strength Upper Extremity Strength Assessment Within Functional Limits Lower Extremity Strength Assessment Within Functional Limits Comments Strength Comments 4+/5 R hip, otherwise grossly 5/5 Coordination Assessment Gross Coordination Gross Coordination WNL Assessment Foot Tapping Test Normal Performance Sensation Assessment Sensation Gross Sensation Right LE Impaired Comments Sensation Comments Sensation in R LE was diminished compared to left; lateral and medial calf as well as dorsum of foot. Pt was unaware. Muscle Tone Muscle Tone WNL Yes M6 PT-IP Treatment Start: 08/10/22 07:54 Freq: NEEDED Status: Active Protocol: Document 08/10/22 12:30 (Rec: 08/10/22 13:27 [id number]) Physical Therapy Treatment Other Treatments Other Treatment Performed pt was educated that they are to wear the post op shoe for all WB activites but that they can take the shoe off when sleeping. M7 PT-IP Assessment and Plan Start: 08/10/22 07:54 Freq: NEEDED Status: Active Protocol: Document 08/10/22 12:30 (Rec: 08/10/22 13:27 [id number]) PT Summary Assessment and Plan Potential Rehabilitation Potential Excellent Status of Condition at Evaluation Evolving Summary Assessment Summary Pt was admitted to the ED on and taken to OR 08/09. Partial amputation of 2nd toe on R foot. Precautions are WBAT with post op shoe. Pt was up and moving around their room with ease in post op shoe upon encounter with PT. They live alone in a single story home with no stairs. There is a bath tub/shower in his home with no grab bars; PT recommended a tub transfer bench if WB in shower is not tolerable. Pain is a 2/10 with some tightness in upper legs. Pt is mobilizing independently at this time with good awareness of his precautions. Pt is working on being able to work remotely from home to monitor his movements. Pt does admit to some falls this past year but are unrelated to current condition. Pt does present with diminished sensation in R LE. Skilled out patient physical therapy could be beneficial to improve balance and gait. No acute PT needs are anticipated. Frequency of Treatment Frequency Of Treatment Discharge Precautions Other Precautions WBAT in post-op shoe Weight Bearing Status Weight Bearing Status Weight Bear as Tolerated Recommendations To Nursing Amount of Assist Needed Independent,Standby Assistance Discharge Recommendations PT Discharge Recommendations Home,Outpatient PT Other Discharge Recommendations pt may benefit from a tub transfer bench Transportation Needs at Discharge Private Vehicle Treatment was provided by Evelyn Olivier, SPT and supervised by Karmen Golden, PT, DPT. I personally reviewed this note and agree with its contents.
--- NOTE | 2022-08-10 12:31 | PM.PNPO.1 ---
Subjective Subjective Interval history: Patient is doing well this morning, has no complaints. Denies pain, fever, chills, nausea, vomiting. He states he has been up walking with postop shoe with no difficulty. He is eager to know more about the plan moving forward. Discussed that cultures are pending and he will continue broad coverage antibiotics until specifics are known. Exam Vital Signs (past 8 hours): - 08/10/22 04:45 08/10/22 08:11 08/10/22 08:34 Temperature 97.1 F L 96.4 F L Pulse Rate 71 69 68 Respiratory Rate 18 18 Blood Pressure 116/77 118/76 118/76 Pulse Oximetry 96 96 Oxygen Delivery Method Oxygen Flow Rate 0 0 08/10/22 07:00 Temperature Pulse Rate Respiratory Rate Blood Pressure Pulse Oximetry Oxygen Delivery Method Room Air Oxygen Flow Rate Oxygen Delivery Method Room Air Oxygen Flow Rate 0 Narrative Exam Narrative: Pleasant 51-year-old male. Awake, alert, and oriented. Gauze with minor amount of serosanguineous discharge, Bright bandage, and postoperative shoe intact. Strength intact to bilateral lower extremities. Decreased sensation to right toes, sensation intact to light touch of right foot and more proximal right leg. Sensation to light touch subjectively intact to left lower extremity. Objective Labs 08/10/22 05:45 08/10/22 05:45 Labs: Laboratory Results - last 24 hr 08/07/22 08/10/22 08/10/22 00:01 05:45 05:45 WBC 11.6 H D RBC 4.23 L Hgb 13.7 Hct 39.8 L MCV 94.0 MCH 32.4 MCHC 34.5 RDW 13.2 Plt Count 282 Neut % (Auto) 76.4 H D Lymph % (Auto) 16.4 L [place] % (Auto) 4.9 Eos % (Auto) 1.6 L Baso % (Auto) 0.7 Neut # (Auto) 8900 H Lymph # (Auto) 1900 [place] # (Auto) 600 Eos # (Auto) 200 Baso # (Auto) 100 Sodium 135 L Potassium 4.5 Chloride 103 Carbon Dioxide 24 BUN 14 Creatinine 0.61 L Estimated GFR > 60 BUN/Creatinine Ratio 23.0 H Glucose 124 H Hgb A1c (Ref Lab) 5.4 Estim Average Glucose 108 Calcium 9.0 C-Reactive Protein 08/10/22 05:45 WBC RBC Hgb Hct MCV MCH MCHC RDW Plt Count Neut % (Auto) Lymph % (Auto) [place] % (Auto) Eos % (Auto) Baso % (Auto) Neut # (Auto) Lymph # (Auto) [place] # (Auto) Eos # (Auto) Baso # (Auto) Sodium Potassium Chloride Carbon Dioxide BUN Creatinine Estimated GFR BUN/Creatinine Ratio Glucose Hgb A1c (Ref Lab) Estim Average Glucose Calcium C-Reactive Protein 1.5 H PFSH Social History household members: none Smoking Status: Current every day smoker Assessment & Plan Post-op Postoperative Procedures: Procedures Operation Date: 08/09/22 08:00 Actual Procedure Side Surgeon p Incision and Drainage Wound Right Second Toe, Partial Amputation Lorna Lawrence MD Postoperative day: 1 Postoperative status narrative: Patient progressing as expected after I and D, partial amputation right 2nd toe. Postoperative plan: routine post-op care Postoperative plan narrative: Continue IV antibiotics - primary team to follow on patient's wound culture and adjust the antibiotics accordingly. Weight bear as tolerated in a postop shoe to his right lower extremity. Continue multimodal pain regimen as needed. Disposition per primary team. Follow up with orthopedics 2 weeks after surgery for wound check.
[2022-08-10] MEDS: SODIUM CHLORIDE 0.9% 250 ML 21 ML IV (13:01)
[2022-08-10 15:00] VITALS: BP 121/75; PULSE 81; RESP 18; TEMP 37; O2SAT 95
[2022-08-10 20:00] VITALS: BP 119/67; PULSE 84; RESP 18; TEMP 36.1; O2SAT 84
[2022-08-10] MEDS: cefTRIAXone 2,000 MG in SODIUM CHLORIDE 0.9% 100 ML 200 MG IV (21:40)
[2022-08-10] MEDS: ACETAMINOPHEN 325 MG TABLET 650 MG PO (21:42)
[2022-08-10] MEDS: OXYCODONE IR 5 MG TABLET PO (21:42)
[2022-08-10] MEDS: DOCUSATE 100 MG CAPSULE PO (21:43)
[2022-08-10] MEDS: MELATONIN 3 MG TABLET 6 MG PO (21:43)
[2022-08-11] VITALS: BP 117/75; PULSE 67; RESP 18; TEMP 35.9; O2SAT 94
[2022-08-11] MEDS: VANCOMYCIN 1,250 MG/250 ML PIGGYBACK 250 MG IV (04:21)
[2022-08-11 06:00] VITALS: BP 124/79; PULSE 66; RESP 18; TEMP 35.6; O2SAT 96
[2022-08-11 07:03] LABS: Add Manual Diff / Slide Review NO; Basophils Absolute Auto 0 /uL (0-100); Basophils Percent Auto 0.5 % (0-2); Eosinophils Absolute Auto 300 /uL (0-450); Eosinophils Percent Auto 3.8 % (2-4); Hematocrit 39.8 % (41-53); Hemoglobin 13.8 g/dL (13.5-17.5); Lymphocytes Absolute Auto 2900 /uL (1100-4500); Mean Corpuscular HGB Conc 34.6 % (30-36); Mean Corpuscular Hemoglobin 32.6 PG (26-34); Mean Corpuscular Volume 94.1 fL (80-100); Monocytes Absolute Auto 400 /uL (0-900); Monocytes Percent Auto 4.5 % (3-14); Neutrophils Absolute Auto 4800 /uL (1500-7000); Neutrophils Percent Auto 57.2 % (50-75); Platelet Count 300 X10^3/uL (150-400); Red Blood Cell Count 4.23 X10^6/uL (4.5-5.9); Red Cell Distribution Width 13.2 % (11.6-14.8); White Blood Cell Count 8.4 X10^3/uL (4.5-11.0)
[2022-08-11 07:14] LABS: BUN Creatinine Ratio 20.6 (6-22); Blood Urea Nitrogen 13 mg/dL (9-20); Calcium 8.8 mg/dL (8.4-10.2); Carbon Dioxide 25 mmol/L (22-32); Chloride 102 mmol/L (98-107); Estimated Glomerular Filt Rate > 60 mL/min (>60); Glucose 103 mg/dL (70-100); HEMOLYSIS < 15 (0-50); Potassium 4.3 mmol/L (3.4-5.1); Sodium 135 mmol/L (137-145)
[2022-08-11] MEDS: allopurinoL 100 MG TABLET 300 MG PO (08:10)
[2022-08-11] MEDS: SERTRALINE 50 MG TABLET 100 MG PO (08:10)
[2022-08-11 08:11] VITALS: BP 124/79
[2022-08-11] MEDS: LOSARTAN 50 MG TABLET 100 MG PO (08:11)
[2022-08-11] MEDS: SODIUM CHLORIDE 0.9% FLUSH 10 ML IV (08:12)
--- NOTE | 2022-08-11 10:08 | P.DS_ITS ---
History of Present Illness History of Present Illness Date Patient Seen: 08/11/22 Time Patient Seen: 09:35 Chief complaint: Bad toe Narrative: Per admitting provider, Mr. Pretty is a 51M with PMH gout, HTN, former smoker who presents with ulcerated, swollen toe. He notes he had an ulcer develop on the dorsal portion of his right second toe a few weeks ago. He had no trauma he says. He has no history of diabetes, peripheral artery disease, cardiac disease. He has no fevers/chills. He did soak his toe occasionally. His toe continued to worsen so he presented to the ED. In the ED workup was done, vitals notable for afebrile, heart rate in the 90s, blood pressure 160s/100s, sats 97% on room air. Labs reviewed and notable for WB C 9.0, hgb 14.5, plts 323. Na 136, BUN 10, creatinine 0.64. ESR 52. CRP 4.9. Procal 0.12. Foot xray reviewed by me and notable for edema of the 2nd toe. He was ordered for antibiotics and admitted for further treatment. Discharge Providers Provider Date of admission: 08/07/22 23:37 Discharge Date: 08/11/22 Primary care physician: Doctor Indu MD Consults: 08/07/22 23:25 Consult to Orthopedic Surgery Routine Comment: Consulting Provider: Lorna Lawrence Reason for consultation: wet necrosis of 2nd rt toe Has provider been notified: No 08/08/22 10:36 Consult to Wound Care Routine Comment: Consulting Provider: [facility] 08/09/22 10:42 Consult to Discharge Planning Routine Comment: Consult to Physical Therapy Evaluate & Treat Comment: Physician Instructions: Evaluate and Treat Discharge provider: Jake Mandujano DO Summary Hospital Course Discharge Diagnosis: 1. Right 2nd toe cellulitis and osteomyelitis with surgical amputation yesterday.? Patient currently postoperative. 2. Hypertension 3. Gout 4. Depression Hospital Course: This is a 51 year old male admitted with acute osteomyelitis of his 2nd toe on the Right. Orthopedic surgery was consulted after the patient was started on broad spectrum antibiotics. They ultimately performed a partial amputation of his R 2nd toe on 08/09. Antibiotics were continued and the patient had a relatively uncomplicated post operative course with no significant events. At the time of discharge, patient's cultures were still pending and were too early for growth. Given operative note with clean margins, 2-5 days of post operative antibiotics were recommended. After discussion with the patient he wished to be a bit on the aggressive side so he was discharged home to approximate IV therapy with cefdinir and doxycycline for another 3 days. A1c returned at 5.4%. No other changes to patient's home medications were recommended at the time of discharge. He will have outpatient follow up in 2 weeks with orthopedic surgery for wound check. UPDATE: cultures showing gram negative bacilli, no current changes recommended but will call patient should antibiotic therapy be needed based on final operative cultures. Time Spent with Patient Time spent: Greater than 30 minutes Exam Vital Signs (past 8 hours): - 08/11/22 06:00 08/11/22 08:11 Temperature 96.0 F L Pulse Rate 66 Respiratory Rate 18 Blood Pressure 124/79 124/79 Pulse Oximetry 96 Oxygen Flow Rate 0 Oxygen Delivery Method Room Air Oxygen Flow Rate 0 Narrative Exam Narrative: GEN: no acute distress, chronic strabismus CV: regular rate and rhythm PULM: clear bilaterally, no wheezes, rhonchi rales ABD: soft, nontender, nondistended, normal bowel sounds EXT: warm and well perfused, pedal pulses palpable and normal, right foot dressed with postop dressing NEURO: awake, alert, oriented, no focal deficits Objective Labs 08/11/22 06:30 08/11/22 06:30 Labs: Laboratory Results - last 24 hr 08/11/22 08/11/22 08/11/22 06:30 06:30 06:30 WBC 8.4 RBC 4.23 L Hgb 13.8 Hct 39.8 L MCV 94.1 MCH 32.6 MCHC 34.6 RDW 13.2 Plt Count 300 Neut % (Auto) 57.2 Lymph % (Auto) 34.0 [place] % (Auto) 4.5 Eos % (Auto) 3.8 Baso % (Auto) 0.5 Neut # (Auto) 4800 Lymph # (Auto) 2900 [place] # (Auto) 400 Eos # (Auto) 300 Baso # (Auto) 0 Sodium 135 L Potassium 4.3 Chloride 102 Carbon Dioxide 25 BUN 13 Creatinine 0.63 L Estimated GFR > 60 BUN/Creatinine Ratio 20.6 Glucose 103 H Calcium 8.8 C-Reactive Protein 1.0 PFSH Social History household members: none Smoking Status: Current every day smoker Discharge Plan Discharge Plan Patient Disposition: Home Provider Discharge Comment: You were admitted to the hospital with an infection in your 2nd toe, this toe had to be removed. Will complete 5 days of antibiotics after resection of your toe at home, cultures have not grown any specific organi sm thus far but we can approximate current antibiotics at home. Please follow up with orthopedics clinic in 2 weeks. Nursing Discharge Comment: monitor your Left foot/incision site daily for signs and symptoms of infection. signs of this can be: increased pain, swelling, redness, foul odor, fever, general malaise. call your doctor/surgeon if any of those as listed above occur and do not resolve. call surgeon for follow up appt, see surgeon w/in 2 weeks of d/c today. call your primary care physician w/in 7-10 days of today's date. be cautious w/ the pain medications, assess your pain prior to taking medication. it can make you dizzy, so please use caution w/ driving. see attached info on the antibiotics you will be taking: cefdinir + doxycycline. it is good practice while taking antibiotics to take a probiotic. this can be over the counter, acidophilius OR probiotic *([employer]) another alternative is eating plain yogurt daily. it is good practice to take your vital signs twice daily from today x 1 week. keep a log of these and take them w/ you to the doctors appts. Left toe bandage changing: as per surgeon. i have sent a couple of gauze and saline flushes w/ you today to help you w/ your first day home. elevate your Lower extremities a few times per day if able, higher than your heart. this will help alleviate any pain/swelling. it was a pleasure to be your nurse today, please take care of yourself and have a great rest of your day! you zaid Discharge orders & Medications Prescriptions: New acetaminophen 325 mg Tablet 650 mg PO Q6H PRN (Reason: Fever/Mild Pain (1-3)) Qty: 60 0RF oxycodone 5 mg Tablet 5 mg PO Q3HR PRN (Reason: Pain, Mild (1-3)) 7 Days Qty: 20 0RF cefdinir 300 mg capsule 300 mg PO BID 3 Days Qty: 6 0RF doxycycline hyclate 100 mg tablet 100 mg PO BID 3 Days Qty: 6 0RF Continued sertraline 100 mg tablet 100 mg PO DAILY Patient Comments: TAKE 1 TABLET BY MOUTH DAILY allopurinol 300 mg tablet 300 mg PO DAILY Patient Comments: TAKE 1 TABLET BY MOUTH DAILY losartan 100 mg tablet 100 mg PO DAILY Follow up/Referrals: Indu,Doctor, [Primary Care Provider] - Diet/Activity/Treatments Diet: Diet as Tolerated and Regular Activity: As tolerated with no restrictions. Visit Report/Discharge Packet Instructions: Antibiotic-associated Colitis -- C difficile, DI for Prescription Opioid Use, DI for Incision and Drainage of a Joint, DI for Incision and Drainage, [facility]: Wound Care, Doxycycline (By mouth) Stand Alone Forms: Patient Portal/API, Stroke Signs & Symptoms Discharge Data Primary Care Provider: Doctor Indu Discharges patient from system. Discharge Date/Time: 08/11/22 13:50
[2022-08-11] MEDS: VANCOMYCIN 1,250 MG/250 ML PIGGYBACK 150 MG IV (11:33)
[2022-08-11 12:00] VITALS: BP 110/70; PULSE 83; RESP 18; TEMP 36.3; O2SAT 97
--- NOTE | 2022-08-11 12:30 | PC.NURSE ---
patient is a/o, voices needs. ind w/ ADLs, mobility. POD 2, dressing to left foot is CDI, +CSM. denies pain/discomfort. encouraged elevation thru the shift, amputation/wound care teaching provided thru the shift. patient is eager to learn, seems motivated. d/c instructions received. patient agreeable to take his dose of IV vanco prior to d/c. currently infusing. dc paperwork reviewed, patient requested [facility] paperwork assistance. encouraged to follow up w/ PCP after d/c. see d/c
== END 2022-08-11 13:50 | disposition home or self-care (01) | DRG 580 ==
LOC: ED 21:11 → AC 23:38
PROVIDERS: Emergency Medicine; Neuromusculoskeletal Medicine, Sports Medicine; Orthopaedic Surgery Orthopaedic Surgery of the Spine; Student in an Organized Health Care Education/Training Program; Admitting Provider Internal Medicine; Emergency Provider Internal Medicine; Referring Provider Emergency Medicine; Visit Provider Internal Medicine
PROC: 0KBV0ZZ Excision of Right Foot Muscle, Open Approach (ICD-10-PCS; principal; 2022-08-09 08:00)
DX: L03.031 Cellulitis of right toe (principal); M86.8X7 Other osteomyelitis, ankle and foot; I10 Essential (primary) hypertension; M10.9 Gout, unspecified; F32.A Depression, unspecified; F17.290 Nicotine dependence, other tobacco product, uncomplicated; Z20.822 Contact with and (suspected) exposure to COVID-19
CPT/HCPCS: 36415; 73630; 73718; 75635; 80048; 80053; 80202; 82962; 83036; 84145; 84550; 85025; 85651; 86140; 87040; 87070; 87075; 87077; 87185; 87186; 87205; 96365; 96366; 96367; 96372; 97161; 99284; 99285; J0696; J1100; J1650; J2250; J2405; J2704; J3010; Q9967

== ENCOUNTER 2022-08-19 12:06 | Emergency (ER) | payer OTHER, MEDICAID, SELFPAY ==
[2022-08-08 11:37] VITALS: BMI 30.3
[2022-08-19 12:08] VITALS: BP 155/85; PULSE 96; RESP 16; TEMP 36.7; O2SAT 97; BMI 33.3
--- NOTE | 2022-08-19 12:34 | DI.RAD.S_ITS ---
PROCEDURE: XR FOOT RT MIN 3V INDICATIONS: recent procedure for toe abscess, now more red, osteo? TECHNIQUE: 3 views of the foot were acquired. COMPARISON: [facility], MR, MR FOOT RT WO CON, 08/08/2022, 7:59. [facility], CR, XR FOOT RT MIN 3V, 08/07/2022, 17:03. FINDINGS: Bones: Interval 2nd toe distal amputation at the level of the mid shaft of the middle phalanx of the 2nd toe. No definite plain film evidence of osteomyelitis. Degenerative arthritis involving the 1st MTP and 1st IP joints. Soft tissues: No tibiotalar joint effusion. Achilles tendon appears normal. IMPRESSION: Interval distal 2nd toe amputation. No definite plain film evidence of osteomyelitis. Comment: Consider nonemergent foot MRI with without contrast. Dictated by: Daniel Dang M.D. on 08/19/2022 at 14:50 Approved by: Daniel Dang M.D. on 08/19/2022 at 14:54
[2022-08-19 12:58] LABS: Add Manual Diff / Slide Review NO; Basophils Absolute Auto 0 /uL (0-100); Basophils Percent Auto 0.3 % (0-2); Eosinophils Absolute Auto 300 /uL (0-450); Eosinophils Percent Auto 3.4 % (2-4); Hematocrit 41.6 % (41-53); Hemoglobin 14.4 g/dL (13.5-17.5); Lymphocytes Absolute Auto 2000 /uL (1100-4500); Lymphocytes Percent Auto 22.7 % (25-40); Mean Corpuscular HGB Conc 34.7 % (30-36); Mean Corpuscular Hemoglobin 32.2 PG (26-34); Mean Corpuscular Volume 92.7 fL (80-100); Monocytes Absolute Auto 400 /uL (0-900); Monocytes Percent Auto 4.5 % (3-14); Neutrophils Absolute Auto 6000 /uL (1500-7000); Neutrophils Percent Auto 69.1 % (50-75); Platelet Count 310 X10^3/uL (150-400); Red Blood Cell Count 4.49 X10^6/uL (4.5-5.9); Red Cell Distribution Width 12.9 % (11.6-14.8); White Blood Cell Count 8.7 X10^3/uL (4.5-11.0)
[2022-08-19 13:15] LABS: BUN Creatinine Ratio 19.7 (6-22); Blood Urea Nitrogen 12 mg/dL (9-20); C-Reactive Protein Quant 0.6 mg/dL (<1.0); Carbon Dioxide 29 mmol/L (22-32); Chloride 101 mmol/L (98-107); Estimated Glomerular Filt Rate > 60 mL/min (>60); Glucose 123 mg/dL (70-100); HEMOLYSIS < 15 (0-50); Potassium 4.1 mmol/L (3.4-5.1); Sodium 138 mmol/L (137-145)
[2022-08-19 13:21] LABS: Erythrocyte Sedimentation Rate 30 MM/HR (0-15)
--- NOTE | 2022-08-19 13:21 | ED.SKABFB ---
HPI - Skin/Abscess/Foreign Bdy General Chief complaint: Skin/Abscess/Foreign Body Stated complaint: dr ref/rt second toe Time Seen by Provider: 08/19/22 12:22 Source: patient Mode of arrival: Ambulatory History of Present Illness HPI narrative: 52-year-old male with a history of hypertension presents for evaluation of some pain and redness of the toes on his right foot. He had been recently seen and treated by our orthopedic surgeons for a infection on his right 2nd toe and had an incision and drainage. He states this looks much better but now he is developing some redness of other toes on his foot. He denies any fever chills nor nausea or vomiting. He is no longer taking antibiotics. Related Data Home Medications Medication Instructions Recorded Confirmed allopurinol 300 mg tablet 300 mg PO DAILY 08/08/22 08/08/22 losartan 100 mg tablet 100 mg PO DAILY 08/08/22 08/08/22 sertraline 100 mg tablet 100 mg PO DAILY 08/08/22 08/08/22 Previous Rx's Medication Instructions Recorded acetaminophen 325 mg tablet 650 mg PO Q6H PRN Fever/Mild Pain 08/11/22 (1-3) #60 tabs cefdinir 300 mg capsule 300 mg PO BID #20 caps 08/19/22 doxycycline hyclate 100 mg tablet 100 mg PO BID #20 tabs 08/19/22 Allergies Allergy/AdvReac Type Severity Reaction Status Date / Time No Known Drug Allergies Allergy Verified 08/08/22 08:15 Review of Systems Review of Systems Narrative: GENERAL: Denies chills, fatigue, malaise, fever, sweats. HEENT: Denies sinus pain, ear pain, sore throat, difficulty swallowing, dizziness. RESPIRATORY: Denies dyspnea, cough, wheezing, hemoptysis, sputum. CARDIOVASCULAR: Denies chest pain, palpitations, orthopnea, edema, GASTROINTESTINAL: Denies nausea, vomiting, abdominal pain, diarrhea, constipation, melena. : Denies dysuria, frequency, incontinence, hematuria, urinary retention. MUSCULOSKELETAL: denies weakness, joint pain, or bony pain SKIN: See HPI NEUROLOGIC: Denies weakness, headache, numbness, change in speech, confusion, seizures, incoordination. PSYCHIATRIC: No concerning psychosocial issues. 12 point review of systems is negative except for those stated above Patient History Social History household members: none Smoking Status: Current every day smoker Smoking Status: Current every day smoker tobacco type: smokeless tobacco alcohol intake frequency: 3 or more drinks per day Substance Use Type: marijuana Exam Narrative Exam Narrative: GEN: AOx3 and in mild distress EYES: Pupils are equal, round, and reactive to light and accommodation. Extraoccular muscles are intact bilaterally. There is no subconjunctival hemorrhage or exudate. CHEST: Lungs are clear to auscultation bilaterally and free of wheezes, rales, or rhonchi. Heart rate is regular rhythm, there are no murmurs, clicks, rubs, or gallops. There is no chest wall tenderness. ABD: Abdomen is soft and nontender. There is no guarding or rebound. Bowel sounds are normal in all 4 quadrants. There is no mass or organomegaly. EXT: minimal redness 4th and 5th toes of R foot. 2nd toe with appropriate healing, no significant swelling. No drainage. SKIN: Warm, pink, and dry. No erythema or rash Initial Vital Signs Initial Vital Signs: Vital Signs Temperature 98.0 F 08/19/22 12:08 Pulse Rate 96 H 08/19/22 12:08 Respiratory Rate 16 08/19/22 12:08 Blood Pressure 155/85 H 08/19/22 12:08 Pulse Oximetry 97 08/19/22 12:08 Oxygen Delivery Method Room Air 08/19/22 12:08 Course Orders Ordered: ED Orders 08/19/22 12:34 XR foot RT min 3V Stat 08/19/22 12:42 BMP [Basic Metabolic Panel] Stat CBC Auto Diff [Complete Blood Count AUTO DIFF] Stat CRP [C-Reactive Protein Quant] Stat ESR [Erythrocyte Sedimentation Rate] Stat Vital Signs Vital signs: Vital Signs - 8 hr 08/19/22 12:08 Temperature 98.0 F Pulse Rate 96 H Respiratory Rate 16 Blood Pressure 155/85 H Pulse Oximetry 97 Oxygen Delivery Method Room Air MDM - Skin/Abscess/Foreign Bdy Lab Data 08/19/22 12:42 08/19/22 12:42 Labs: Lab Results 08/19/22 08/19/22 Range/Units 12:42 12:42 WBC 8.7 (4.5-11.0) X10^3/uL RBC 4.49 L (4.5-5.9) X10^6/uL Hgb 14.4 (13.5-17.5) g/dL Hct 41.6 (41-53) % MCV 92.7 (80-100) fL MCH 32.2 (26-34) PG MCHC 34.7 (30-36) % RDW 12.9 (11.6-14.8) % Plt Count 310 (150-400) X10^3/uL Neut % (Auto) 69.1 (50-75) % Lymph % (Auto) 22.7 L (25-40) % [place] % (Auto) 4.5 (3-14) % Eos % (Auto) 3.4 (2-4) % Baso % (Auto) 0.3 (0-2) % Neut # (Auto) 6000 (9276-3416) /uL Lymph # (Auto) 2000 (7800-5134) /uL [place] # (Auto) 400 (0-900) /uL Eos # (Auto) 300 (0-450) /uL Baso # (Auto) 0 (0-100) /uL ESR 30 H (0-15) MM/HR Sodium 138 (137-145) mmol/L Potassium 4.1 (3.4-5.1) mmol/L Chloride 101 (98-107) mmol/L Carbon Dioxide 29 (22-32) mmol/L BUN 12 (9-20) mg/dL Creatinine 0.61 L (0.66-1.25) mg/dL Estimated GFR > 60 (>60) mL/min BUN/Creatinine Ratio 19.7 (6-22) Glucose 123 H (70-100) mg/dL Calcium 9.0 (8.4-10.2) mg/dL C-Reactive Protein 0.6 (<1.0) mg/dL [facility] Narrative Medical decision making narrative: [52] year old patient presents with minimal pain and swelling of the 4th and 5th toes in his right foot Multiple etiologies for patient's symptoms considered including, but not limited to: [Cellulitis versus abscess versus osteomyelitis] Prior Charts reviewed in our EMR Primary Historian: patient Labs reviewed and interpreted by myself: Largely unremarkable, no significant abnormalities Imaging reviewed: Foot x-ray demonstrates no obvious abnormalities Patient's symptoms improved over duration of stay with above-stated therapies. No signs of abscess or osteomyelitis. Given improvement with previously administered antibiotics, prescriptions are written for both cefdinir and doxycycline and sent to [facility]. He plans to follow-up with ortho. We did discuss the potential utility in referral to Podiatry and he will pursue this Findings and discharge diagnosis discussed with patient/family followed by verbalization of understanding Return precautions discussed with patient/family whom verbalize understanding of diagnosis and plan Discharge Plan Departure Patient Disposition: Home Clinical Impression: Infection of toe Instructions: DI for Cellulitis -- Adult Activity Restrictions/Additional Instructions: *You have been diagnosed with [toe infection ] *What to do: *Please continue to take your regular medications as directed. [ x] New medication prescriptions sent to your pharmacy: [[facility] ] [ ] New medication written as a paper prescription [ ] No new medications given *Please follow up with Dr. Lawrence in 2-3 days, call for an appointment. Let them know you were seen in the Emergency Department and that we ask that you be seen in follow up. *Return to Emergency Department if you should have any new, worsening or concerning symptoms, such as [fever greater than 101 F, shaking chills, worsening pain, persistent vomiting or other bothersome symptoms] Prescriptions: New doxycycline hyclate 100 mg tablet 100 mg PO BID Qty: 20 0RF cefdinir 300 mg capsule 300 mg PO BID Qty: 20 0RF No Action sertraline 100 mg tablet 100 mg PO DAILY Patient Comments: TAKE 1 TABLET BY MOUTH DAILY allopurinol 300 mg tablet 300 mg PO DAILY Patient Comments: TAKE 1 TABLET BY MOUTH DAILY losartan 100 mg tablet 100 mg PO DAILY acetaminophen 325 mg Tablet 650 mg PO Q6H PRN (Reason: Fever/Mild Pain (1-3)) Qty: 60 0RF Referrals: Kalli Rosenbaum DPM [Physician] - Lorna Lawrence MD [Physician] - Miscellaneous,MD Lidya [Primary Care Provider] - Stand Alone Forms: Patient Portal/API
== END 2022-08-19 14:31 | disposition home or self-care (01) ==
PROVIDERS: Emergency Provider Emergency Medicine
DX: L08.9 Local infection of the skin and subcutaneous tissue, unspecified (principal)
CPT/HCPCS: 36415; 73630; 80048; 85025; 85651; 86140; 99283; 99284

== ENCOUNTER → 2022-09-15 11:52 | Outpatient (CLI) | payer OTHER, MEDICAID, SELFPAY ==
[2022-08-08 11:37] VITALS: BMI 30.3
== END ==
PROVIDERS: Visit Provider Surgery
DX: G60.3 Idiopathic progressive neuropathy (principal); L97.512 Non-pressure chronic ulcer of other part of right foot with fat layer exposed
CPT/HCPCS: 11042; 99203; 99213

== ENCOUNTER → 2022-09-22 14:48 | Outpatient (CLI) | payer OTHER, MEDICAID, SELFPAY ==
[2022-08-08 11:37] VITALS: BMI 30.3
== END ==
PROVIDERS: Referring Provider Orthopaedic Surgery Orthopaedic Surgery of the Spine; Visit Provider Surgery
DX: G60.3 Idiopathic progressive neuropathy (principal); L97.512 Non-pressure chronic ulcer of other part of right foot with fat layer exposed
CPT/HCPCS: 11042

== ENCOUNTER → 2022-09-29 14:55 | Outpatient (CLI) | payer OTHER, MEDICAID, SELFPAY ==
[2022-08-08 11:37] VITALS: BMI 30.3
== END ==
LOC: WC 14:56
PROVIDERS: Referring Provider Orthopaedic Surgery Orthopaedic Surgery of the Spine; Visit Provider Surgery
DX: G60.3 Idiopathic progressive neuropathy (principal); L97.512 Non-pressure chronic ulcer of other part of right foot with fat layer exposed
CPT/HCPCS: 11042; 87070; 87075; 87077; 87186; 87205; 99213

== ENCOUNTER → 2022-10-06 14:50 | Outpatient (CLI) | payer OTHER, MEDICAID, SELFPAY ==
[2022-08-08 11:37] VITALS: BMI 30.3
== END ==
PROVIDERS: Referring Provider Orthopaedic Surgery Orthopaedic Surgery of the Spine; Visit Provider Surgery
DX: G60.3 Idiopathic progressive neuropathy (principal); L97.512 Non-pressure chronic ulcer of other part of right foot with fat layer exposed
CPT/HCPCS: 11042; 99213

== ENCOUNTER → 2022-10-13 14:45 | Outpatient (CLI) | payer OTHER, MEDICAID, SELFPAY ==
[2022-08-08 11:37] VITALS: BMI 30.3
== END ==
PROVIDERS: Referring Provider Orthopaedic Surgery Orthopaedic Surgery of the Spine; Visit Provider Surgery
DX: M79.89 Other specified soft tissue disorders (principal); R59.0 Localized enlarged lymph nodes; G60.3 Idiopathic progressive neuropathy; L97.516 Non-pressure chronic ulcer of other part of right foot with bone involvement without evidence of necrosis; L97.512 Non-pressure chronic ulcer of other part of right foot with fat layer exposed; L03.115 Cellulitis of right lower limb; R60.0 Localized edema; L53.9 Erythematous condition, unspecified
CPT/HCPCS: 11042; 87070; 87075; 87077; 87147; 87186; 87205; 93971; 99214

== ENCOUNTER → 2022-10-13 16:03 | Outpatient (CLI) | payer OTHER, SELFPAY ==
[2022-08-08 11:37] VITALS: BMI 30.3
--- NOTE | 2022-10-13 16:04 | DI.US.S_ITS ---
PROCEDURE: US PERIPH VENOUS LOW EXTREM RT INDICATIONS: Possible DVT TECHNIQUE: Real-time imaging, as well as color and pulse Doppler interrogation, were performed of the lower extremity deep veins from the inguinal ligament to the popliteal fossa, with documentation of the visualized calf veins. COMPARISON: None. FINDINGS: The common femoral, femoral, popliteal, and the visualized calf veins are normally compressible, and free of intraluminal thrombus. Color and pulse Doppler demonstrate normal phasic intraluminal flow. There is normal augmentation response to distal compression maneuver. Incidental single right inguinal lymph node measures 3.7 x 2.2 x 3.6 cm. Preserved fatty hilum and central vascularity. IMPRESSION: No evidence of deep venous thrombosis, right lower extremity. Right inguinal adenopathy Approved by: Augie Valles M.D. on 10/13/2022 at 15:54
== END ==
PROVIDERS: Referring Provider Surgery; Visit Provider Surgery
DX: M79.89 Other specified soft tissue disorders (principal); R59.0 Localized enlarged lymph nodes
CPT/HCPCS: 93971

== ENCOUNTER 2022-10-16 06:48 | Day surgery (SDC) | payer OTHER, SELFPAY ==
[2022-08-08 11:37] VITALS: BMI 30.3
--- NOTE | 2022-10-16 | PATH_ITS ---
[facility] [place] Accession Number: [id number] No. of containers..01 Tissue . 01 Material submitted: . toe - RIGHT SECOND TOE . 01 Diagnosis: Right Second Toe, Amputation: Actively inflamed chronic ulcer of skin. Changes consistent with subacute osteomyelitis. Soft tissue and bony margins of resection viable. MRV 10/27/2022 1727 Local . 01 Electronically signed: . Johanna Edouard MD, Pathologist NPI- [id number] . 01 Gross description: . The specimen is received in formalin labeled with the patient's name, , and right second toe, and consists of a disarticulated digit measuring 5.9 cm in length by 3.0 cm in average diameter with grissom, wrinkled cutaneous surface and no nail bed grossly identified. An ulcerated lesion is located on the lateral aspect measuring 1.2 x 1.0 cm and is located 0.3 cm from the nearest soft tissue margin. The soft tissue margin is inked blue, while the articular surface is inked orange. Sectioning reveals clifford to grissom soft tissue and grissom trabecular osseous tissue that is difficult to section with a scalpel. [employer] sections are submitted as follows: A1-A2: Soft tissue margin en face. A3: Articular surface en face. A4: Cross-section with lesion and underlying bone. Submitted for decalcification. ([id number]) /THU 10/27/2022 1118 Local . 01 Pathologist provided ICD-10: M86.9, L97.511 . 01 CPT . 249655, 755202 Specimen Comment: A courtesy copy of this report has been sent to [phone] Performed at: 01 [facility] [address] [place] [address], [place], [place] [id number] MD Ilya Velasquez MD Phone: [phone]
[2022-10-16 07:09] VITALS: BP 135/85; PULSE 92; RESP 16; TEMP 36.2; O2SAT 96; BMI 30.8
[2022-10-16] MEDS: LACTATED RINGERS 1,000 ML 42 ML IV (07:19)
--- NOTE | 2022-10-16 07:34 | PM.PREOP ---
Pre-operative Note Interval Note History & Physical reviewed/Exam performed by Physician: Yes Changes to H&P: No
[2022-10-16] MEDS: CEFAZOLIN 2 GM/100 ML PREMIX 100 ML IV (07:45)
[2022-10-16] MEDS: BUPIVACAINE 0.25% (PF) 30 ML, EPINEPHrine 0.15 MG INJ (08:24)
[2022-10-16 08:38] VITALS: BP 127/91; PULSE 87; RESP 18; TEMP 36.5; O2SAT 95
[2022-10-16 08:44] VITALS: BP 107/81; PULSE 88; RESP 16; O2SAT 95
[2022-10-16 08:49] VITALS: BP 118/82; PULSE 84; RESP 14; O2SAT 95
[2022-10-16 08:54] VITALS: BP 115/78; PULSE 78; RESP 14; TEMP 36.5; O2SAT 95
--- NOTE | 2022-10-16 08:58 | P.OP_ITS ---
Operative Date/Time/Diagnoses Date of procedure: 10/16/22 Time of procedure: 08:00 Pre-op diagnosis: Osteomyelitis 2nd toe right foot Skin ulcer right foot full-thickness Post-op diagnosis: same Procedure & Clinicians Procedure: Complete amputation 2nd toe right foot CPT code 80899 T6 Same procedure as scheduled: Yes Indications: Patient is a 52-year-old male with right 2nd toe osteomyelitis. He had a previous debridement bone biopsy and has been getting wound care and oral antibiotics. He is had worsening swelling and continued ulceration without evidence of healing. He has a fusiform swollen digit consistent with osteomyelitis. He has been on ciprofloxacin is now having tendinopathies. He has been indicated for amputation of the right 2nd digit. He has osteomyelitis involving the proximal phalanx therefore indicated for amputation through the MTP joint. We discussed risks benefits and alternatives to surgery including r isks for need for additional procedures and risks for recurrent wound breakdown and or persistent infection. Patient also has some superficial ulcerations on his other toes discussed care of these. Patient elects to proceed with surgery today. Consent was signed Surgeon: Erica Elizabeth Click Yes if Unassisted: Yes Anesthesia Type: General and Local Operative Notes Findings: Fusiform swelling right 2nd digit large medial ulceration at the proximal phalanx full-thickness. No deep purulence or abscess. Metatarsal head intact. Closure Type: primary Specimen(s): other (2nd Toe sent to pathology, cultures that MTP joint sent for microbiology) Estimated Blood Loss (mL): 2 Blood products transfused: none Tourniquet time (min): 7 Procedure in detail: Patient was seen in the preoperative area the site of surgery was marked informed consent confirmed. He was brought back to the operating room by the anesthesia team positioned supine on operative table. Anesthetic was administered. The lower extremity was prepped and draped in the standard sterile fashion. A calf tourniquet was placed. A formal time-out procedure was performed confirming the patient's side and site of surgery administration of appropriate preoperative antibiotic. All were in agreement. 15 cc of 0.25% Marcaine was utilized for local anesthetic. [place] exsanguination was utilized and the tourniquet was raised on the calf to 250 mmHg and was elevated for 7 minutes. Attention was turned to the right 2nd toe a tennis racquet type incision was marked out on the toe this was taken down through the skin subcutaneous tissues in a full-thickness incision and the digit was amputated. The extensor and flexor tendons were then cut on tension and allowed to retract. Neurovascular bundles were cut cauterized and allowed to retract. He would tourniquet was released hemostasis was achieved , wound was irrigated with copious saline. Gloves were changed. At this time a culture was taken at the MTP joint. And the wound was closed in layers with 3-0 PDS, 4-0 Monocryl and 4- 0 nylon suture. A sterile dressing was applied with Xeroform gauze Melinda wrap and [place]. Counts were correct. There were no immediate complications. The patient was woken from anesthesia and taken to the recovery room. Complications: none Post-operative Condition: stable Disposition: PACU Plan for aftercare: Weightbear in a postoperative shoe. Keep dressing clean dry and intact. It feels tight can loosen. Sutures will stay in place at least 2-4 weeks.
[2022-10-16 09:05] VITALS: BP 112/77; PULSE 76; RESP 16; TEMP 36.1; O2SAT 98
== END 2022-10-16 09:42 | disposition home or self-care (01) ==
PROVIDERS: PCP Physician Assistant; Referring Provider Orthopaedic Surgery Foot and Ankle Surgery; Visit Provider Orthopaedic Surgery Foot and Ankle Surgery
PROC: (CPT 28825; principal; 2022-10-16 07:45)
DX: M86.9 Osteomyelitis, unspecified (principal); L97.511 Non-pressure chronic ulcer of other part of right foot limited to breakdown of skin
CPT/HCPCS: 28825; 87070; 87075; 87205; J0171; J0690; J1100; J2405; J2704; J3010

== ENCOUNTER → 2023-09-13 14:41 | Outpatient (CLI) | payer OTHER, SELFPAY ==
[2022-08-08 11:37] VITALS: BMI 30.3
--- NOTE | 2023-09-13 14:42 | DI.RAD.S_ITS ---
PROCEDURE: XR ANKLE LT MIN 3V INDICATIONS: Left ankle swelling TECHNIQUE: 3 views of the ankle were acquired. COMPARISON: None. FINDINGS: Bones: Superior subluxation noted on the lateral exam. There is loss of the longitudinal arch. Diffuse soft tissue swelling present. Distal tibia and fibula unremarkable. The ankle mortise is maintained. No intrinsic osseous sclerotic or lytic lesion IMPRESSION: Dorsal navicular subluxation. Advise follow-up CT to assess for tarsal fractures. Approved by: Augie Valles M.D. on 09/13/2023 at 17:02
== END ==
PROVIDERS: PCP Physician Assistant; Referring Provider Registered Nurse; Visit Provider Registered Nurse
DX: S93.02XA Subluxation of left ankle joint, initial encounter (principal); M25.472 Effusion, left ankle
CPT/HCPCS: 73610

== ENCOUNTER → 2023-09-13 15:01 | Outpatient (CLI) | payer OTHER, SELFPAY ==
[2022-08-08 11:37] VITALS: BMI 30.3
--- NOTE | 2023-09-13 16:00 | DI.US.S_ITS ---
PROCEDURE: US PERIP VENOUS LOW EXTREM LT INDICATIONS: CALF/ANKLE EDEMA TECHNIQUE: Real-time imaging, as well as color and pulse Doppler interrogation, were performed of the lower extremity deep veins from the inguinal ligament to the popliteal fossa, with documentation of the visualized calf veins. COMPARISON: [facility], , [facility] VENOUS LOW EXTREM RT, 10/13/2022, 16:15. FINDINGS: The common femoral, femoral, popliteal, and the visualized calf veins are normally compressible, and free of intraluminal thrombus. Color and pulse Doppler demonstrate normal phasic intraluminal flow. There is normal augmentation response to distal compression maneuver. This study is limited by body habitus. IMPRESSION: No findings of lower extremity deep venous thrombosis. Dictated by: Colin Teague M.D. on 09/13/2023 at 15:09 Approved by: Colin Teague M.D. on 09/13/2023 at 15:11
== END ==
PROVIDERS: PCP Physician Assistant; Referring Provider Registered Nurse; Visit Provider Registered Nurse
DX: M79.89 Other specified soft tissue disorders (principal); S93.02XA Subluxation of left ankle joint, initial encounter; M25.472 Effusion, left ankle
CPT/HCPCS: 73610; 93971

== ENCOUNTER 2023-09-14 13:21 | Emergency (ER) | payer OTHER, SELFPAY ==
[2022-08-08 11:37] VITALS: BMI 30.3
[2023-09-14 14:16] VITALS: BP 145/87; PULSE 88; RESP 18; TEMP 36.1; O2SAT 96; BMI 34.7
--- NOTE | 2023-09-14 16:41 | ED_ITS ---
HPI - Extremity Injury (Lower) <Kolby Carmona PA-C - Last Filed: 09/14/23 19:16> General Chief Complaint: Extremity Injury, Lower Stated Complaint: lt ankle injury Time Seen by Provider: 09/14/23 16:29 Source: patient Mode of arrival: Ambulatory History of Present Illness HPI Narrative: 53-year-old male with past medical history gout, hyperlipidemia, hypertension presents to the ED with 2 weeks of left ankle pain. Patient recalls injuring his ankle, however due to his neuropathy does not recall exactly the nature of the injury. Patient endorses 2 weeks of left-sided ankle pain that has been worsening. Patient states that his left foot and leg is very swollen. Patient denies numbness, tingling, weakness. Patient is able to walk, however it is painful to bear weight. No fever, chills, chest pain, shortness of breath. Patient was seen in the walk-in clinic yesterday, x-ray and ultrasound were performed. Ultrasound was negative. Ankle x-ray showed superior dorsal navicular subluxation, loss of longitudinal arch, diffuse soft tissue swelling. Radiologist advised follow-up CT to assess for tarsal fractures. Patient was notified by the walk-in clinic, patient comes in today for further evaluation. Patient was also prescribed antibiotics for possible cellulitis in that lower leg, which he has not started yet since he wanted assessment for fractures prior to starting the antibiotics. Patient did have osteomyelitis in his right foot last year, which lead to amputation of the right 2nd toe. Related Data Home Medications Medication Instructions Recorded Confirmed allopurinol 300 mg tablet 300 mg PO DAILY 08/08/22 09/13/23 losartan 100 mg tablet 100 mg PO DAILY 08/08/22 09/13/23 sertraline 100 mg tablet 100 mg PO DAILY 08/08/22 09/13/23 Previous Rx's Medication Instructions Recorded acetaminophen 325 mg tablet 650 mg (2 x 325 mg) PO Q6H PRN 08/11/22 Fever/Mild Pain (1-3) #60 tabs doxycycline hyclate 100 mg tablet 100 mg PO BID #20 tabs 08/19/22 hydrocodone 5 mg-acetaminophen 325 1 tab PO Q4H PRN pain #10 tabs 10/16/22 mg tablet cephalexin 500 mg capsule 1,000 mg (2 x 500 mg) PO BID 07/29/24 Cellulitis 10 days #40 caps Allergies Allergy/AdvReac Type Severity Reaction Status Date / Time No Known Drug Allergies Allergy Verified 09/13/23 14:15 Review of Systems <Kolby Carmona PA-C - Last Filed: 09/14/23 19:16> Constitutional Constitutional: Denies chills, Denies fatigue, Denies fever(s), Denies frequent falls, Denies lethargy and Denies weakness Eyes Eyes: Denies change in vision, Denies eye discharge, Denies irritation and Denies loss of vision ENT Ears, Nose, Mouth, and Throat: Denies change in voice, Denies dizziness, Denies neck pain, Denies sore throat and Denies throat swelling Cardiovascular Cardiovascular: Denies chest pain, Denies irregular heart rhythm, Denies lightheadedness, Denies palpitations, Denies dyspnea, Denies dyspnea on exertion and Denies orthopnea Respiratory Respiratory: Denies cough, Denies dyspnea, Denies dyspnea on exertion and Denies wheezing Gastrointestinal Gastrointestinal: Denies abdominal pain, Denies change in bowel habits, Denies diarrhea, Denies nausea and Denies vomiting Musculoskeletal Musculoskeletal: Denies neck pain and Denies numbness Comments: Left ankle, foot, lower leg swelling, pain Integumentary/Breasts Skin/Breast: Denies pruritus, Denies erythema, Denies rash and Denies wounds Neurologic Neurologic: Denies behavioral changes, Denies confusion, Denies dizziness, Denies frequent falls, Denies loss of vision, Denies numbness and Denies weakness Psychiatric Psychiatric: Denies anxiety, Denies behavioral changes, Denies confusion, Denies depression, Denies homicidal ideation and Denies suicidal ideation Endocrine Endocrine: Denies fatigue, Denies flushing and Denies palpitations Hematologic/Lymphatic Hematologic/Lymphatic: Denies easy bruising Allergic/Immunologic Allergic/Immunologic: Denies urticaria, Denies throat swelling and Denies wheezing Patient History <Kolby Carmona PA-C - Last Filed: 09/14/23 19:16> Social History household members: none Smoking Status: Current every day smoker Smoking Status: Current every day smoker tobacco type: smokeless tobacco alcohol intake frequency: 3 or more drinks per day Alcohol type: beer Substance Use Type: marijuana Exam <Kolby Carmona PA-C - Last Filed: 09/14/23 19:16> Narrative Exam Narrative: Const General:?cooperative, healthy appearing and comfortable [facility] Head:?normal to inspection Ears:?hearing grossly normal bilaterally Nose:?external nose normal Face and sinus:?normal facial exam and sinuses nontender Mouth:?oral mucosae normal Throat:?posterior oropharynx normal Eyes General:?appearance normal, both eyes and all related structures Neck Neck:?normal visual inspection and no lymphadenopathy noted Resp Effort & Inspection:?normal respiratory effort Auscultation:?clear to auscultation bilaterally Cardio Rate:?regular rate Rhythm:?regular rhythm Musculoskeletal There is significant swelling of the left lower leg, ankle, foot. Compartments are soft. There is some erythema concerning for cellulitis. Strength and sensation is intact. There is full range of motion. Neurovascularly intact. Neuro General:?patient alert, patient awake and patient oriented x3 Initial Vital Signs Initial Vital Signs: Vital Signs Temperature 96.9 F L 09/14/23 14:16 Pulse Rate 88 09/14/23 14:16 Respiratory Rate 18 09/14/23 14:16 Blood Pressure 145/87 H 09/14/23 14:16 Pulse Oximetry 96 09/14/23 14:16 Oxygen Delivery Method Room Air 09/14/23 14:16 <Yisel Jensen MD - Last Filed: 09/14/23 22:20> Initial Vital Signs Initial Vital Signs: Vital Signs Temperature 96.9 F L 09/14/23 14:16 Pulse Rate 88 09/14/23 14:16 Respiratory Rate 18 09/14/23 14:16 Blood Pressure 145/87 H 09/14/23 14:16 Pulse Oximetry 96 09/14/23 14:16 Oxygen Delivery Method Room Air 09/14/23 14:16 Course <Kolby Carmona PA-C - Last Filed: 09/14/23 19:16> Orders Ordered: ED Orders 09/14/23 16:54 CT LE LT wo con Stat 09/14/23 17:50 CBC Auto Diff [Complete Blood Count AUTO DIFF] Stat CMP [Comprehensive Metabolic Panel] Stat CRP [C-Reactive Protein Quant] Stat ESR [Erythrocyte Sedimentation Rate] Stat Lactate (Lactic Acid) Stat 09/14/23 18:10 Blood Culture Stat Vital Signs Vital signs: Vital Signs - 8 hr 09/14/23 17:45 09/14/23 20:50 Temperature 97.7 F Pulse Rate 72 78 Respiratory Rate 18 20 Blood Pressure 122/73 131/87 Pulse Oximetry 97 98 Oxygen Delivery Method Room Air <Yisel Jensen MD - Last Filed: 09/14/23 22:20> Orders Ordered: ED Orders 09/14/23 16:54 CT LE LT wo con Stat 09/14/23 17:50 CBC Auto Diff [Complete Blood Count AUTO DIFF] Stat CMP [Comprehensive Metabolic Panel] Stat CRP [C-Reactive Protein Quant] Stat ESR [Erythrocyte Sedimentation Rate] Stat Lactate (Lactic Acid) Stat 09/14/23 18:10 Blood Culture Stat Vital Signs Vital signs: Vital Signs - 8 hr 09/14/23 17:45 09/14/23 20:50 Temperature 97.7 F Pulse Rate 72 78 Respiratory Rate 18 20 Blood Pressure 122/73 131/87 Pulse Oximetry 97 98 Oxygen Delivery Method Room Air MDM - Extremity Injury (Lower) <Kolby Carmona PA-C - Last Filed: 09/14/23 19:16> Lab Data 09/14/23 17:50 09/14/23 17:50 Labs: Lab Results 09/14/23 Range/Units 17:50 WBC 9.7 (4.5-11.0) X10^3/uL RBC 4.20 L (4.5-5.9) X10^6/uL Hgb 14.0 (13.5-17.5) g/dL Hct 40.1 L (41-53) % MCV 95.5 (80-100) fL MCH 33.4 (26-34) PG MCHC 35.0 (30-36) % RDW 12.9 (11.6-14.8) % Plt Count 301 (150-400) X10^3/uL Neut % (Auto) 70.2 (50-75) % Lymph % (Auto) 22.7 L (25-40) % [place] % (Auto) 3.0 (3-14) % Eos % (Auto) 3.8 (2-4) % Baso % (Auto) 0.3 (0-2) % Neut # (Auto) 6800 (3204-5538) /uL Lymph # (Auto) 2200 (0565-0741) /uL [place] # (Auto) 300 (0-900) /uL Eos # (Auto) 400 (0-450) /uL Baso # (Auto) 0 (0-100) /uL ESR 45 H (0-15) MM/HR Sodium 137 (137-145) mmol/L Potassium 3.9 (3.4-5.1) mmol/L Chloride 103 (98-107) mmol/L Carbon Dioxide 24 (22-32) mmol/L BUN 8 L (9-20) mg/dL Creatinine 0.61 L (0.66-1.25) mg/dL Estimated GFR > 60 (>60) mL/min BUN/Creatinine Ratio 13.1 (6-22) Glucose 105 H (70-100) mg/dL Lactate 1.4 (0.7-2.1) mmol/L Calcium 9.2 (8.4-10.2) mg/dL Total Bilirubin 0.7 (0.2-1.3) mg/dL AST 44 (17-59) IU/L ALT 34 (<50) IU/L Alkaline Phosphatase 108 (38-126) U/L C-Reactive Protein 2.8 H (<1.0) mg/dL Total Protein 7.3 (6.3-8.2) g/dL Albumin 4.2 (3.5-5.0) g/dL Globulin 3.1 (1.7-4.1) g/dL Albumin/Globulin Ratio 1.4 (1.0-2.8) MDM Narrative Medical decision making narrative: 53-year-old male with past medical history gout, hyperlipidemia, hypertension presents to the ED with 2 weeks of left ankle pain. CT scan of the left lower extremity ordered for further evaluation. Will reassess. CT scan shows a comminuted and displaced fracture involving inferior and medial portion of proximal cuboid. Pathologic fracture secondary to osteomyelitis in this area can not be entirely excluded. Clinical correlation recommended. Significant dorsal subluxation/dislocation of navicular bone in relation to the talus and cuneiform. No other fracture or dislocation is seen. Osteoarthritic changes throughout the left foot. No other area of bony erosive changes to suggest osteomyelitis. There is diffuse soft tissue swelling and edema and distal lower leg extending to left foot suggestive of cellulitis. No discrete drainable abscess collection. No abnormal soft tissue calcifications. Labs obtained with CRP elevated to 2.8, ESR elevated to 45. Will consult ortho. Care of this patient transferred to Dr. Yisel Jensen. <Yisel Jensen MD - Last Filed: 09/14/23 22:20> Lab Data Labs: Lab Results 09/14/23 Range/Units 17:50 WBC 9.7 (4.5-11.0) X10^3/uL RBC 4.20 L (4.5-5.9) X10^6/uL Hgb 14.0 (13.5-17.5) g/dL Hct 40.1 L (41-53) % MCV 95.5 (80-100) fL MCH 33.4 (26-34) PG MCHC 35.0 (30-36) % RDW 12.9 (11.6-14.8) % Plt Count 301 (150-400) X10^3/uL Neut % (Auto) 70.2 (50-75) % Lymph % (Auto) 22.7 L (25-40) % [place] % (Auto) 3.0 (3-14) % Eos % (Auto) 3.8 (2-4) % Baso % (Auto) 0.3 (0-2) % Neut # (Auto) 6800 (0533-5519) /uL Lymph # (Auto) 2200 (6385-0017) /uL [place] # (Auto) 300 (0-900) /uL Eos # (Auto) 400 (0-450) /uL Baso # (Auto) 0 (0-100) /uL ESR 45 H (0-15) MM/HR Sodium 137 (137-145) mmol/L Potassium 3.9 (3.4-5.1) mmol/L Chloride 103 (98-107) mmol/L Carbon Dioxide 24 (22-32) mmol/L BUN 8 L (9-20) mg/dL Creatinine 0.61 L (0.66-1.25) mg/dL Estimated GFR > 60 (>60) mL/min BUN/Creatinine Ratio 13.1 (6-22) Glucose 105 H (70-100) mg/dL Lactate 1.4 (0.7-2.1) mmol/L Calcium 9.2 (8.4-10.2) mg/dL Total Bilirubin 0.7 (0.2-1.3) mg/dL AST 44 (17-59) IU/L ALT 34 (<50) IU/L Alkaline Phosphatase 108 (38-126) U/L C-Reactive Protein 2.8 H (<1.0) mg/dL Total Protein 7.3 (6.3-8.2) g/dL Albumin 4.2 (3.5-5.0) g/dL Globulin 3.1 (1.7-4.1) g/dL Albumin/Globulin Ratio 1.4 (1.0-2.8) [facility] Narrative Medical decision making narrative: 53-year-old male with past medical history gout, hyperlipidemia, hypertension presents to the ED with 2 weeks of left ankle pain. CT scan of the left lower extremity ordered for further evaluation. Will reassess. CT scan shows a comminuted and displaced fracture involving inferior and medial portion of proximal cuboid. Pathologic fracture secondary to osteomyelitis in this area can not be entirely excluded. Clinical correlation recommended. Significant dorsal subluxation/dislocation of navicular bone in relation to the talus and cuneiform. No other fracture or dislocation is seen. Osteoarthritic changes throughout the left foot. No other area of bony erosive changes to suggest osteomyelitis. There is diffuse soft tissue swelling and edema and distal lower leg extending to left foot suggestive of cellulitis. No discrete drainable abscess collection. No abnormal soft tissue calcifications. Labs obtained with CRP elevated to 2.8, ESR elevated to 45. Will consult ortho. Care of this patient transferred to Dr. Yisel Jensen. Dr. Jensen -care of patient is signed out to me. Independent review of patient and chart performed by myself. Patient does have some erythema of his lower extremity, but no excessive warmth to indicate cellulitis. Patient states that erythema improves with elevation of his extremity. Patient has a somewhat indolent course with symptoms progressing over several weeks. Discussed results of all labs, CT imaging, physical exam with Dr. Alanis of on-call orthopedic surgery. Patient's case and presentation does seem to more consistent with Charcot joint rather than acute infection. Recommended placement in orthopedic boot, nonweightbearing status, elevation, follow up in clinic for further assessment. Patient informed of orthopedic recommendations as well as follow up recommendations. Patient in agreement with plan. Discharge Plan Departure Patient Disposition: Home Clinical Impression: Charcot ankle Instructions: Hskldlk-Mbmii-Llpwz Disease Activity Restrictions/Additional Instructions: After discussing your case with orthopedic surgery it is felt that your ankle swelling is a Charcot joint. Wear the boot during the day and limit weight- bearing as much as possible. Use the crutches for ambulation. Follow up with Orthopedic surgery, the referral has been provided. Prescriptions: No Action cephalexin 500 mg capsule 1,000 mg PO BID 10 Days Qty: 40 0RF hydrocodone-acetaminophen 5-325 mg tablet 1 tab PO Q4H PRN (Reason: pain) Qty: 10 0RF Rx Instructions: postop exempt sertraline 100 mg tablet 100 mg PO DAILY Patient Comments: TAKE 1 TABLET BY MOUTH DAILY allopurinol 300 mg tablet 300 mg PO DAILY Patient Comments: TAKE 1 TABLET BY MOUTH DAILY losartan 100 mg tablet 100 mg PO DAILY acetaminophen 325 mg Tablet 650 mg PO Q6H PRN (Reason: Fever/Mild Pain (1-3)) Qty: 60 0RF doxycycline hyclate 100 mg tablet 100 mg PO BID Qty: 20 0RF Referrals: Erica Elizabeth MD [Physician] - Nasima Tripathi PA-C [Primary Care Provider] - Stand Alone Forms: Patient Portal/API, Work Release Note
--- NOTE | 2023-09-14 16:54 | DI.CT.S_ITS ---
PROCEDURE: CT LE LT W CON INDICATIONS: ?tarsal fx TECHNIQUE: Noncontrast 1-1.5 mm axial sections acquired from above the tibiotalar joint to the bottom of the calcaneus, with coronal and sagittal reformats. COMPARISON: [facility], CR, XR ANKLE LT MIN 3V, 09/13/2023, 14:40. [facility], US, US PERIPH VENOUS LOW EXTREM LT, 09/13/2023, 15:16. FINDINGS: Image quality: Excellent. Bones: There is a comminuted fracture involving inferior and medial portion of proximal cuboid with up to 2 cm medial and inferior displacement of the fractured fragment . There is significant superior subluxation/dislocation at talonavicular joint. Superior position of navicular bone in relation to the cuneiform is is also seen. No other fracture or dislocation. Osteoarthritic changes are noted throughout left foot. No definite bony erosive changes. Soft tissues: There is diffuse subcutaneous soft tissue edema and skin thickening around distal lower leg extending to dorsal and lateral aspect of left foot. No discrete drainable peripherally enhancing fluid collection. No enhancing soft tissue mass. No abnormal soft tissue calcifications. No gross full-thickness tendon rupture. IMPRESSION: 1. Comminuted and displaced fracture involving inferior and medial portion of proximal cuboid as described above. Pathologic fracture secondary to osteomyelitis in this area cannot be entirely excluded. Clinical correlation is recommended. 2. Significant dorsal subluxation/dislocation of navicular bone in relation to the talus and cuneiform. No other fracture or dislocation is seen. Osteoarthritic changes throughout left foot. No other area of bony erosive changes to suggest osteomyelitis. 3. Diffuse soft tissue swelling and edema in distal lower leg extending to left foot suggestive of cellulitis. No discrete drainable abscess collection. No abnormal soft tissue calcifications. 4. No discrete enhancing soft tissue mass. No full-thickness ankle tendon rupture. Dictated by: Nile Mckeon M.D. on 09/14/2023 at 17:02 Approved by: Nile Mckeon M.D. on 09/14/2023 at 17:26
[2023-09-14 17:45] VITALS: BP 122/73; PULSE 72; RESP 18; O2SAT 97
[2023-09-14 18:05] LABS: Add Manual Diff / Slide Review NO; Basophils Absolute Auto 0 /uL (0-100); Basophils Percent Auto 0.3 % (0-2); Eosinophils Absolute Auto 400 /uL (0-450); Eosinophils Percent Auto 3.8 % (2-4); Hematocrit 40.1 % (41-53); Lymphocytes Absolute Auto 2200 /uL (1100-4500); Lymphocytes Percent Auto 22.7 % (25-40); Mean Corpuscular Hemoglobin 33.4 PG (26-34); Mean Corpuscular Volume 95.5 fL (80-100); Monocytes Absolute Auto 300 /uL (0-900); Neutrophils Absolute Auto 6800 /uL (1500-7000); Neutrophils Percent Auto 70.2 % (50-75); Platelet Count 301 X10^3/uL (150-400); Red Cell Distribution Width 12.9 % (11.6-14.8); White Blood Cell Count 9.7 X10^3/uL (4.5-11.0)
[2023-09-14 18:16] LABS: Lactate (Lactic Acid) 1.4 mmol/L (0.7-2.1)
[2023-09-14 18:20] LABS: Alanine Aminotransferase 34 IU/L (<50); Albumin 4.2 g/dL (3.5-5.0); Albumin Globulin Ratio 1.4 (1.0-2.8); Alkaline Phosphatase 108 U/L (38-126); Aspartate Aminotransferase 44 IU/L (17-59); BUN Creatinine Ratio 13.1 (6-22); Bilirubin Total 0.7 mg/dL (0.2-1.3); Blood Urea Nitrogen 8 mg/dL (9-20); C-Reactive Protein Quant 2.8 mg/dL (<1.0); Calcium 9.2 mg/dL (8.4-10.2); Carbon Dioxide 24 mmol/L (22-32); Chloride 103 mmol/L (98-107); Estimated Glomerular Filt Rate > 60 mL/min (>60); Globulin 3.1 g/dL (1.7-4.1); Glucose 105 mg/dL (70-100); HEMOLYSIS < 15 (0-50); Potassium 3.9 mmol/L (3.4-5.1); Sodium 137 mmol/L (137-145); Total Protein 7.3 g/dL (6.3-8.2)
[2023-09-14 18:25] LABS: Erythrocyte Sedimentation Rate 45 MM/HR (0-15)
[2023-09-14 20:50] VITALS: BP 131/87; PULSE 78; RESP 20; TEMP 36.5; O2SAT 98
== END 2023-09-14 21:14 | disposition home or self-care (01) ==
PROVIDERS: Student in an Organized Health Care Education/Training Program; Emergency Provider Emergency Medicine; PCP Physician Assistant
DX: M14.672 Charcot's joint, left ankle and foot (principal)
CPT/HCPCS: 73700; 80053; 83605; 85025; 85651; 86140; 87040; 99284

== ENCOUNTER 2023-11-03 07:30 | Day surgery (SDC) | payer OTHER, SELFPAY ==
[2022-08-08 11:37] VITALS: BMI 30.3
[2023-10-27 15:29] VITALS: BMI 34.2
[2023-11-03] VITALS (10 sets, daily range): BP systolic 108–125; BP diastolic 59–84; PULSE 84–100; RESP 14–26; TEMP 36.3–36.6; O2SAT 92–98; BMI 30.8
--- NOTE | 2023-11-03 | DI.RAD.S_ITS ---
PROCEDURE: XR FOOT LT MIN 3V INDICATIONS: Reconstructive procedure left Charcot, navicular excision TECHNIQUE: 7 views of the foot and ankle were acquired. COMPARISON: [facility], CR, XR FOOT RT MIN 3V, 08/19/2022, 12:45. FINDINGS: Bones: Interoperative images show excision of navicular and extensive mid and hindfoot fusion changes with long screw extending across the 1st metatarsal, medial cuneiform into the talus. There also screws extending across the talocalcaneal and the calcaneal cuboid joint through the lateral cuneiform into the base of the 3rd metatarsal. Relationships appear anatomic. Soft tissues: No soft tissue abnormality. IMPRESSION: Postsurgical changes as described Dictated by: Mannie Parekh M.D. on 11/04/2023 at 7:36 Approved by: Mannie Parekh M.D. on 11/04/2023 at 7:40
--- NOTE | 2023-11-03 07:56 | PM.PREOP ---
Pre-operative Note Interval Note History & Physical reviewed/Exam performed by Physician: Yes Changes to H&P: No
[2023-11-03] MEDS: ACETAMINOPHEN 325 MG TABLET 975 MG PO (08:12)
[2023-11-03] MEDS: LACTATED RINGERS 1,000 ML 42 ML IV ×2 (08:17→11:12)
--- NOTE | 2023-11-03 08:36 | SUR.OPER ---
Supine on padded OR bed, head on pillow, arms secured on padded arm boards at <90 degrees abduction, legs uncrossed, safety belt at thigh, tape over blanket over lower legs.
--- NOTE | 2023-11-03 08:47 | SUR.PREOP ---
Block start time [0839] . Time out at 0833. Monitoring initiated and maintained throughout procedure. Oxygen and medications given per anesthesiologist instructions. Patient remained stable throughout procedure, no adverse reactions noted. Block end time [0843].
[2023-11-03] MEDS: CEFAZOLIN 2 GM/100 ML PREMIX 100 ML IV (09:01)
[2023-11-03] MEDS: THROMBIN (RECOMBINANT) 5,000 UNIT VIAL 5000 UNIT TOP (11:22)
--- NOTE | 2023-11-03 12:42 | PM.OP.1 ---
Operative Date/Time/Diagnoses Date of procedure: 11/03/23 Time of procedure: 09:00 Pre-op diagnosis: Charcot arthropathy left foot Neuropathic Charcot joint arthropathy and peripheral neuropathy BMI 34 Post-op diagnosis: same Procedure & Clinicians Procedure: Triple arthrodesis CPT code 39733, left Excision navicular bone of the foot, left CPT code 56681 Bone graft donor area major large, left foot CPT code 90805 Modifier 22 has been appended to the above-named CPT codes due to combination of factors primarily the complex nature of this Charcot foot reconstruction with the need for multiple deformity corrections and joint fusions in the setting of neuropathy. The combination of the factors will result in an increased risk, duration and complexity of the procedure. Increased risk of surgery patients with a body mass index greater than 30 or 35 is also a documented risk in the medical literature During the operation, the services of a physician nursing surgical services director were medically indicated and necessary to provide the exposure of the operative site for the surgical procedure and to maintain the limb in a proper position to carry out the operation safely and efficiently. Without a qualified medical claims assistant being present this would extended the operative procedure and made the procedure technically more difficult to perform. Same procedure as scheduled: Yes Indications: The patient is a 53-year-old male with idiopathic neuropathy and Charcot left foot involving his Chopart joint with near complete dislocation of his navicular and destruction of the calcaneocuboid joint. He is indicated for reconstruction of his Charcot left foot deformity to restore a plantigrade foot. The swelling has now improved enough to proceed with foot reconstruction surgery. We discussed the risks of surgery, including risks and benefits, risks of infection, wound healing complications, nonunion, malunion, need for additional procedures and risks for amputation. We discussed a three-month period of nonweightbearing after the foot reconstruction. And we discussed the use of bone graft. He has no personal or family history of coagulopathy or VTE. Surgeon: Erica Elizabeth [employer] Planner: Amalia Moore Anesthesia Type: General and Peripheral nerve block Operative Notes Findings: Charcot arthropathy with near complete extrusion of the navicular dorsally. Destruction of the calcaneocuboid joint no purulence or signs of infection. Navicular was excised and morselized for bone graft. Foot was shortened through the navicular excision and through the calcaneocuboid joint. The reduction was completed and pinned in place. And a tripod was restored using 3 x 7.2 joust screws/bolts from the paragon 28 set Closure Type: primary Specimen(s): none sent Prosthetic devices, grafts, tissues, transplants, or devices: [place] 28 Joust bolt fully-threaded. 7.2 cannulated 150 mm, 85 mm, 140 mm Estimated Blood Loss (mL): 50 Blood products transfused: none Tourniquet time (min): 77 Procedure in detail: Patient was seen in the preoperative area the site of surgery was marked informed consent confirmed. This was the left foot. Anesthesia team saw the patient and a preoperative regional block was placed for postoperative pain control. The patient was then brought to the operating room positioned supine on the operative table bony prominences well padded. SCD was placed on the contralateral lower extremity. A well-padded thigh tourniquet was placed as well as an ipsilateral thigh bump. The left lower extremity was then prepped and draped in standard sterile fashion a formal time-out procedure was performed confirming the patient's side and site of surgery administration of the appropriate preoperative antibiotic all were in agreement. Attention turned to the left foot this was exsanguinated and the tourniquet raised to 250 mm of mercury. This was let down after 77 minutes and not re elevated. Incision was made dorsal medially just lateral to the tibialis anterior over the location of the navicular care was taken on subcutaneous dissection to the level of the navicular which was nearly completely extruded from the joints. Blunt dissection was taken down around the navicular and the remaining soft tissue connections were cut and the navicular bone was then excised exposing the talar head and the cuneiforms. The navicular bone was taken to the back table where this was carefully held and prepared removing the cartilage and cortical rims in order to obtain good cancellous autograft for later use as bone graft. Next a separate incision was made from the tip of the fibula long the calcaneocuboid joint to the base of the 4th metatarsal. This was carefully suppressive we dissected through the skin and subcutaneous tissues to the level of the calcaneocuboid joint. This was identified and was grossly dislocated with bone loss and destruction medially. The remaining lateral bone was then distracted using the K-wire distract dirt and then decorticated and shortened using the bur. Once adequate bone was removed from both the excision of the navicular medially and the shortening through the calcaneocuboid joint laterally the foot was reduced. The cartilage surfaces off the talus head and the cuneiform was was removed using a combination of curette and the bur to bleeding cancellous surfaces. Additionally a K-wire distractor was used to distract the posterior facet of the subtalar joint and this was also denuded of cartilage in the standard technique using alternating curette osteotomes and the bur. Once the joints were prepped completely they were reduced and then pinned in place. This involved the medial middle and lateral cuneiforms and the talar head as well as preparing the calcaneocuboid joint and the subtalar joint across the posterior facet. Alignment was checked on intraoperative fluoroscopy. Next the trajectory for the guidewire for the jowls to medial bolt was obtained this is utilizing a plantar approach to the 1st metatarsal head care was taken to retract the FHL tendon out of the way the guidewires advanced through the metatarsal head into the 1st metatarsal across the cuneiforms and across into the talus. Once the appropriate alignment on AP and lateral planes this was then measured and overdrilled and then a 150 mm 7.2 bolt was applied. In a similar fashion wires for a lateral bolt and a subtalar joint were advanced from the heel into the talus and then from the heel across the calcaneocuboid joint respectively. These were checked on multiplanar fluoroscopy overdrilled and then both of 85 mm for the subtalar joint and 140 mm for the calcaneocuboid bolt straightening the lateral column were placed. Alignment was appropriate on intraoperative fluoroscopy. The autograft bone from the navicular was then packed into the midfoot and sinus tarsi at the locations of the fusion sites. Once this was completed the wounds were closed with 2-0 Vicryl suture deep, 4-0 Monocryl subcutaneously and 3-0 nylon in the skin. Dressings were placed with Xeroform gauze Webril bulky Alcantar cotton and a posterior and U splint in neutral alignment. All counts were correct. The patient was awoken from anesthesia and taken to the recovery unit in good condition there were no immediate complications from this procedure. All counts were correct. Complications: none Post-operative Condition: stable Disposition: PACU Plan for aftercare: Nonweightbearing left lower extremity elevate heart level. Aspirin 325 mg b.i.d. x6 weeks. Patient was positioned prescriptions for oxycodone and Zofran for postoperative pain and nausea respectively.
== END 2023-11-03 13:15 | disposition home or self-care (01) ==
PROVIDERS: PCP Physician Assistant; Referring Provider Orthopaedic Surgery Foot and Ankle Surgery; Visit Provider Orthopaedic Surgery Foot and Ankle Surgery
PROC: (CPT 27870; principal; 2023-11-03 08:45)
DX: M14.672 Charcot's joint, left ankle and foot (principal); G60.9 Hereditary and idiopathic neuropathy, unspecified; G89.18 Other acute postprocedural pain
CPT/HCPCS: 28715; 28122; 64450; 73630; 76000; J0690; J1100; J2250; J2405; J2704; J3010

== ENCOUNTER 2024-01-05 13:59 | Day surgery (SDC) | payer OTHER, SELFPAY ==
[2022-08-08 11:37] VITALS: BMI 30.3
[2024-01-04 14:26] VITALS: BMI 34.2
--- NOTE | 2024-01-05 | PATH_ITS ---
[facility] Accession Number: [id number] No. of containers..01 Tissue . 01 Material submitted: . toe - LEFT 5TH TOE . 01 Clinical history: . AMPUTATION . 01 Diagnosis: LEFT FIFTH TOE, AMPUTATION: . Skin: Ulceration, scale crust and acute suppurative inflammation of the subcutaneous tissue, focally extending into the underlying bone, most consistent with focal acute osteomyelitis. Negative for malignancy. Surgical margins: Bone is viable. Skin ulceration focally extends to the soft tissue margin, per gross description. MRV 01/11/2024 1539 Local . 01 Electronically signed: . Elaine Mayfield MD, Pathologist NPI- [id number] . 01 Gross description: . Received in formalin with two identifiers and left fifth toe amputation, is a disarticulated digit 5.3 x 2.7 cm. The skin is diffusely crusted with two ulcerated lesions identified. The first is on the presumed dorsal aspect (2.3 x 1.6 cm) and grossly approaches the soft tissue margin. The second ulcerated lesion is located on the presumed plantar aspect (1.6 x 0.8 cm) and grossly approaches the soft tissue margin. No distinct nail bed is identified. The soft tissue margin is inked blue while the articular surface is inked orange. Sectioning reveals clifford-grissom soft tissue with grissom trabecular osseous tissue that is easy to section with a scalpel. Sports Commentator sections are submitted as follows: A1: Soft tissue margin en face. A2: Articular surface en face. A3: Cross-section of first lesion and underlying bone. A4: Crosss-section of second lesion and underlying bone. The specimen decalcified ([id number]) /THU 01/06/2024 0951 Local . 01 Pathologist provided ICD-10: M86.9, M20.41, M20.42, M20.22 . 01 CPT . 832412, 449632 Specimen Comment: A courtesy copy of this report has been sent to [phone] Performed at: [address] [id number] MD Ilya Velasquez MD Phone: [phone]
[2024-01-05 15:02] VITALS: BP 169/94; PULSE 89; RESP 18; TEMP 35.9; O2SAT 96; BMI 31.7
[2024-01-05] MEDS: LACTATED RINGERS 1,000 ML 42 ML IV (15:13)
--- NOTE | 2024-01-05 15:46 | SUR.PREOP ---
When beginning to admit patient he stated he did not have anyone staying with him for 24 hours after surgery. Informed patient of safety risks and stated he is supposed to have someone with him for 24 hours after surgery. Patient stated he would find someone. Patient called and found someone to stay with him. States that she will stay with him for the required time after surgery.
--- NOTE | 2024-01-05 16:45 | PM.PREOP ---
Pre-operative Note Interval Note History & Physical reviewed/Exam performed by Physician: Yes Changes to H&P: No
[2024-01-05] MEDS: CEFAZOLIN VIAL 1 GM in SODIUM CHLORIDE 0.9% 100 ML IV (17:06)
[2024-01-05] MEDS: CEFAZOLIN 2 GM/100 ML PREMIX 100 ML IV (17:06)
[2024-01-05] MEDS: LIDOCAINE 1% 20 ML INJ (17:21)
--- NOTE | 2024-01-05 17:24 | SUR.OPER ---
Supine on padded OR bed, head on pillow, arms secured on padded arm boards at <90 degrees abduction, safety belt abdomen, tape over blanket over non surgical lower leg.
[2024-01-05 17:43] VITALS: BP 141/91; PULSE 87; RESP 16; TEMP 37.1; O2SAT 97
[2024-01-05 17:48] VITALS: BP 140/96; PULSE 79; RESP 14; O2SAT 96
[2024-01-05 17:54] VITALS: BP 149/88; PULSE 76; RESP 12; O2SAT 98
[2024-01-05 17:59] VITALS: BP 142/94; PULSE 76; RESP 14; O2SAT 98
--- NOTE | 2024-01-05 18:07 | P.OP_ITS ---
Operative Date/Time/Diagnoses Date of procedure: 01/05/24 Time of procedure: 18:10 Pre-op diagnosis: Osteomyelitis 5th toe left foot neuropathic wounds left foot 4th and 5th toe Post-op diagnosis: same Procedure & Clinicians Procedure: Amputation 5th toe left foot CPT code 53611 left --T4 Debridement ulcer left foot 4th toe T3 Modifier 79 for unrelated procedure Same procedure as scheduled: Yes Indications: 53-year-old male with a history of Charcot arthropathy of the left foot. He had reconstruction of his left hindfoot several months ago and was in a cast. He had a new incident where he jammed his toes and injured them about a week and a half ago he notes bleeding at the time. He had not seek initial care. Presented to the office with osteomyelitis and draining wound from the left 5th toe. This was remote from his hindfoot surgery site. And unrelated. He was indicated for amputation of the 5th toe osteomyelitis and debridement of the 4th toe webspace ulceration. The risks and benefits of the procedure have been discussed with the patient and given the opportunity to ask questions. The risks of surgery include but are not limited to infection, malunion, nonunion, persistence of pain, damage to nerves and blood vessels, posttraumatic arthritis, DVT, PE, cardiopulmonary complications and . The patient expres sed a thorough understanding of the risks and benefits of surgery and has elected to proceed. Consent was signed. Surgeon: Erica Elizabeth Click Yes if Unassisted: Yes Anesthesia Type: Sedation and Local Operative Notes Findings: Draining wound with purulence 5th toe consistent with osteomyelitis. Ulceration lateral soft tissue 4th toe along the proximal phalanx. Also some small partial-thickness webspace ulcerations between the 3rd and 4th toes Closure Type: primary Specimen(s): other (Tissue sent for aerobic and anaerobic and toe sent for pathology 5th toe left foot) Estimated Blood Loss (mL): 20 Blood products transfused: none Tourniquet time (min): 0 Procedure in detail: Patient was seen in the preoperative area the site of surgery was marked informed consent confirmed this was the left foot. The patient was brought back to the operating room by the anesthesia team. Sedation was utilized. The left foot was prepped and draped in the standard sterile fashion a formal time-out procedure was performed confirming the patient's side and site of surgery administration of appropriate antibiotic. All were in agreement. Attention was turned to the left toe no tourniquet was utilized. 10 cc of 1% lidocaine without epinephrine was injected for local anesthetic. Then a tennis racquet incision was completed and distected down to bone in the definitive full-thickness manner. He had a disarticulation at the MTP joint. Bone from the fifth toe was sent for culture and the toe sent for pathology. The extensor and flexor tendons were cut and allowed to retract. The neurovascular bundle was cauterized. The wound was irrigated with saline. Was closed with 2-0 PDS, 4-0 Monocryl and 4-0 and 2-0 nylon. The wound along the 4th toe was debrided using a curette. Sterile dressings were placed with Xeroform gauze and Webril. Gauze was placed between the toes in the web spaces. Complications: none Post-operative Condition: stable Disposition: PACU Plan for aftercare: Nonweightbearing. Follow up in 2-4 weeks for wound check. We will take Augmentin and we will tailor if needed. Continue nonweightbearing. Keep splint clean dry intact.
== END 2024-01-05 18:16 | disposition home or self-care (01) ==
PROVIDERS: PCP Physician Assistant; Referring Provider Orthopaedic Surgery Foot and Ankle Surgery; Visit Provider Orthopaedic Surgery Foot and Ankle Surgery
PROC: (CPT 28825; principal; 2024-01-05 15:30)
DX: M86.9 Osteomyelitis, unspecified (principal); M20.42 Other hammer toe(s) (acquired), left foot; L98.492 Non-pressure chronic ulcer of skin of other sites with fat layer exposed
CPT/HCPCS: 28825; 11042; 87070; 87075; 87077; 87186; 87205; J0690; J2250; J2405; J2704; J3010